=== PATIENT | male | born 1935 | race Caucasian/White ===

== ENCOUNTER 2016-11-05 11:34 | Emergency (ER) | payer MEDICARE ==
[~2016-11-05] VITALS: Ht 165.1 cm; Wt 70.0 kg
[~2016-11-05 11:34] MED LIST: ASPI81 PO; ENAL20TA81 PO; GABA100C4 PO; GLIM1TAB PO; HYDR-3129 PO; NIFE60TA5 PO
[2016-11-05 11:50] VITALS: BP 184/89; PULSE 75; RESP 16; TEMP 98.4; O2SAT 99
--- NOTE | 2016-11-05 13:34 | PD ---
HPI Chief Complaint: Fall Time Seen by Provider: 13:23 Travel History International Travel<30 days: No Contact w/Intl Traveler<30days: No History of Present Illness HPI 82-year-old right-hand dominant male presents to the ED via EMS for evaluation of 2 week history of right shoulder pain. The patient states that pain began after he was attempting to place a bottom wrapper leaf inspector a bureau, it fell and pulled his arm with it. He states that he had momentary pain that resolved shortly after. He was able to pitch in a baseball game a few days later. He states that after throwing 4 or 5 pitches he had excruciating pain in the shoulder and was unable to continue. He states that over the last 3 or 4 days the pain has been "above 10" with any attempted range of motion. He states that he initially had some bruising down the arm but that has since resolved. He endorses problems with this shoulder in the past and was treated with cortisone injections. He treated at home with icy hot and ice packs with no improvement of symptoms. PFSH Past Medical History Arthritis: No Asthma: No Autoimmune Disease: No Blood Disorders: No Heart Rhythm Problems: No Cancer: Yes (MELANOMA FACE) Cardiovascular Problems: No High Cholesterol: No Chemotherapy: No Chest Pain: No Congestive Heart Failure: No COPD: No Cerebrovascular Accident: No Diabetes: Yes Diminished Hearing: No Endocrine: No Gastrointestinal Disorders: Yes (hx of pancreatitis due to gallstones) GERD: No Glaucoma: No Genitourinary: No Hepatitis: No Hiatal Hernia: No Hypertension: Yes Immune Disorder: No Musculoskeletal: Yes (ARTHRITIS) Neurologic: No Psychiatric: No Reproductive: No Respiratory: No Migraines: No Myocardial Infarction: No Pancreatitis: Yes Radiation Therapy: No Seizures: No Sleep Apnea: No Thyroid Disease: No Ulcer: No Past Surgical History Abdominal Surgery: Yes (ALTAGRACIA.) AICD: No Arteriovenous Shunt: No Cardiac Surgery: No Cholecystectomy: Yes Ear Surgery: No Endocrine Surgery: No Eye Surgery: Yes (BILAT. CATARACT SX) Genitourinary Surgery: No Gynecologic Surgery: No Insulin Pump: No Joint Replacement: No Neurologic Surgery: No Oral Surgery: Yes (All teeth removed in 2008) Pacemaker: No Thoracic Surgery: No Tonsillectomy: Yes Other Surgery: Yes Social History Alcohol Use: No Tobacco Use: No Substance Use: No Allergies-Medications (Allergen,Severity, Reaction): Coded Allergies: rosuvastatin (Unverified Allergy, Severe, SWELLING, 10/27/16) simvastatin (Unverified Allergy, Severe, swelling, 10/27/16) Reported Meds & Prescriptions Reported Meds & Active Scripts Active Lortab (Hydrocodone-Acetaminophen) 5-325 Mg Tab 1 Tab PO Q6H PRN Reported Integra (Multi-Vit/Iron-B Comp-Vit C) 62.5-62.5-40-3 mg Cap 1 Cap PO DAILY Atorvastatin (Atorvastatin Calcium) 40 Mg Tab 40 Mg PO HS Glimepiride 1 Mg Tab 1 Mg PO BID Take with breakfast or first main meal Benazepril (Benazepril HCl) 20 Mg Tab 20 Mg PO BID Nifedipine ER 24 HR (Nifedipine) 60 Mg Tab 60 Mg PO DAILY Gabapentin 300 Mg Cap 300 Mg PO BID Aspirin Adult Low Strength (Aspirin) 81 Mg Tabdr 81 Mg PO DAILY Review of Systems Except as stated in HPI: all other systems reviewed are Neg Physical Exam Narrative GENERAL: Well-nourished, well-developed white male in no acute distress. SKIN: Focused skin assessment warm/dry. HEAD: Normocephalic. EYES: No scleral icterus. No injection or drainage. NECK: Supple, trachea midline. No JVD or lymphadenopathy. CARDIOVASCULAR: Regular rate and rhythm without murmurs, gallops, or rubs. RESPIRATORY: Breath sounds equal bilaterally. No accessory muscle use. GASTROINTESTINAL: Abdomen soft, non-tender, nondistended. MUSCULOSKELETAL: No cyanosis, or edema. FOCUSED RIGHT UPPER EXTREMITY EXAM: 2+ radial pulse. Tender to palpation of the anterior aspect of the shoulder. Attempted external rotation elicits pain. Patient is resistant to further ROM of the arm. Strong drill foreman strength. Sensation intact to light touch distally. Cap refill less than 2 seconds. BACK: Nontender without obvious deformity. No CVA tenderness. Data Data Last Documented VS Vital Signs Date Time Temp Pulse Resp B/P (MAP) Pulse Ox O2 Delivery O2 Flow Rate FiO2 11/05/16 15:33 11/05/16 13:57 98.5 72 14 94 Room Air Orders Orders Shoulder, Complete (>2vws) (11/05/16 13:34) Acetamin-Hydrocod 325-5 Mg (Brinkley 5-325 (11/05/16 13:45) Splint Or Brace Apply/Monitor (11/05/16 15:02) [facility] Medical Decision Making Medical Screen Exam Complete: Yes Emergency Medical Condition: Yes Differential Diagnosis Humeral fracture versus rotator cuff injury versus biceps strain versus other Narrative Course 82-year-old right-hand dominant male presents to the ED via EMS for evaluation of 2 week history of right shoulder pain. The patient states that pain began after he was attempting to place a bottom wrapper leaf inspector a bureau, it fell and pulled his arm with it. He states that he had momentary pain that resolved shortly after. A few days later he was able to throw 4 or 5 pitches in a baseball game before he had pain in the shoulder and was unable to continue. He states that over the last 3 or 4 days the pain has been "above 10" with attempted range of motion. Vitals reviewed. Physical exam reveals an elderly white male in no acute distress. The right arm is in a makeshift sling. He gestures unconsciously with the right hand as he talks. Right upper extremity exam reveals 2+ radial pulse. Tender to palpation of the anterior aspect of the shoulder. Attempted external rotation elicits pain. Patient is resistant to further ROM of the arm. Strong drill foreman strength. Neurovascularly intact. Patient was administered Lortab by mouth. X-ray reveals no acute bony injury per radiology read. I suspect this is a rotator cuff injury. Patient was provided with a sling, short course of narcotic pain medications. He has already arranged an outpatient appointment with Dr. Hill this week. He is instructed to return to normal, gentle activities as tolerated, follow up as planned. He was cautioned not to drive while taking narcotic pain medications. He indicated understanding of the instructions. He is stable and discharged home. Diagnosis Primary Impression: Injury of right rotator cuff Qualified Codes: S46.001A - Unspecified injury of muscle(s) and tendon(s) of the rotator cuff of right shoulder, initial encounter Referrals: Alexandru Hill MD Patient Instructions: General Instructions, Rotator Cuff Injury (ED) Additional Instructions: Rest, ice, the extremity. Apply ice no longer than 10-15 minutes per hour a few times a day. Pain medications as prescribed. Do not drive while taking narcotic pain medications. Return to normal, gentle activity as tolerated. Follow-up with the orthopedist as planned Return to the ED for any urgent or emergent medical condition. Med/Other Pt SpecificInfo: Prescription(s) given Scripts Hydrocodone-Acetaminophen (Lortab) 5-325 Mg Tab 1 TAB PO Q6H Y for PAIN, #15 TAB 0 Refills Prov: Brendan Arredondo MD 11/05/16 Disposition: 01 DISCHARGE HOME Condition: Stable Argelia Lopez Nov 05, 2016 13:34
[2016-11-05 13:45] VITALS: BP 196/75; PULSE 73; RESP 18; TEMP 98.5; O2SAT 95
[2016-11-05] MEDS ORDERED: ACETAMINOPHEN/HYDROcodone 325 MG/5 MG TAB PO ONE (13:45)
[2016-11-05 13:57] VITALS: BP 196/75; PULSE 72; RESP 14; TEMP 98.5; O2SAT 94
[2016-11-05] MEDS ORDERED: NIFE60TA58 PO (14:40)
[2016-11-05] MEDS ORDERED: ASPI1TAB91 PO (14:40)
[2016-11-05] MEDS ORDERED: GABA300C5 PO (14:40)
[2016-11-05] MEDS ORDERED: GLIM1TAB PO (14:40)
[2016-11-05] MEDS ORDERED: ATOR40TA16 PO (14:40)
[2016-11-05] MEDS ORDERED: BENA20TA PO (14:40)
[2016-11-05] MEDS ORDERED: FE FCAP PO (14:42)
--- NOTE | 2016-11-05 14:44 | RADRPT ---
EXAM DATE/TIME: 11/05/2016 14:17 [facility] COMPARISON: No previous studies available for comparison. INDICATIONS : Right shoulder pain. Lifting drawer and right arm dropped painfully. Previous minor right rotator cuf f tear. MEDICAL HISTORY : None. SURGICAL HISTORY : None. ENCOUNTER: Initial ACUITY: 1 week PAIN SCORE: 7/10 LOCATION: Right shoulder FINDINGS: No definite fractures, or dislocations are identified. No definite lytic or sclerotic lesion is seen . The joint space is well maintained. CONCLUSION: Unremarkable study. Suleiman Ba MD on November 05, 2016 at 14:42 Board Certified Radiologist. This report was verified electronically.
[2016-11-05] MEDS ORDERED: HYDR-3533 PO (15:03)
== END 2016-11-05 15:38 | disposition home or self-care (01) ==
LOC: NEPD 11:34
DX: S46.001A Unspecified injury of muscle(s) and tendon(s) of the rotator cuff of right shoulder, initial encounter (principal); E11.9 Type 2 diabetes mellitus without complications; K85.90 Acute pancreatitis without necrosis or infection, unspecified; I10 Essential (primary) hypertension; M13.80 Other specified arthritis, unspecified site; Z79.82 Long term (current) use of aspirin; Z79.899 Other long term (current) drug therapy; X50.9XXA Other and unspecified overexertion or strenuous movements or postures, initial encounter
CPT/HCPCS: 73030; 99283

== ENCOUNTER 2017-10-13 08:22 | Inpatient (IN) ==
[2017-10-13] MEDS ORDERED: Aspirin 325 MG Tablet ONE (09:08)
[2017-10-13] MEDS ORDERED: Chlorhexidine Gluconate 2% 1 Pack (2 Cloths) TOPICAL SCH ×2 (09:30→09:45)
[2017-10-13] MEDS ORDERED: Aspirin 325 MG Tablet PO SCH (09:30)
[2017-10-13] MEDS ORDERED: Mupirocin 2% Nasal Oint Topical Syringe EACH NARE SCH (09:30)
[2017-10-13] MEDS ORDERED: Metoprolol Tartrate 25 MG Tablet PO SCH (09:45)
[2017-10-13] MEDS ORDERED: Sodium Chlor 0.9% Inj 500 ML IV.SIG SCH (10:00)
--- NOTE | 2017-10-13 10:27 | MH ---
cc: Freddy Fish MD DATE OF ADMISSION: 10/13/2017 INDICATION: Shortness of breath, severe aortic valve stenosis. REFERRING PHYSICIAN: Shiv Reddy MD HISTORY OF PRESENT ILLNESS: This is a very nice 82-year-old male with recent symptoms of progressive dyspnea. He underwent outpatient echocardiogram, which revealed severe aortic valve stenosis. He then subsequently underwent a scheduled cardiac catheterization with my partner, Dr. Shiv Reddy which revealed normal coronary arteries. He was seen in consultation by cardiothoracic surgery and felt to be intermediate surgical risk for traditional aortic valve replacement and now elects to consider transcatheter aortic valve replacement. He is admitted here for the planned procedure. PAST MEDICAL HISTORY: Hypertension, melanoma, diabetes, hyperlipidemia, neuropathy and gastrectomy. PAST SURGICAL HISTORY: Cholecystectomy, eye surgery, spinal surgery, tonsillectomy. ALLERGIES: CRESTOR. SOCIAL HISTORY: Quit smoking in 1987. Denies any alcohol or drug use. REVIEW OF SYSTEMS: A 12-point review of system was performed and is negative unless otherwise as noted in the history of present illness. MEDICATIONS: See medication reconciliation. FAMILY HISTORY: He denies any family history of early coronary disease or sudden cardiac . PHYSICAL EXAMINATION: VITAL SIGNS: Temperature is 97, pulse 70, blood pressure 128/60 mmHg. GENERAL: Alert, oriented x 3 in no acute distress. HEENT: Shows pupils reactive to light and accommodation. Extraocular movements are intact. NECK: No elevation of jugular venous distention. No thyromegaly or lymphadenopathy. No carotid bruits. LUNGS: Clear to auscultation bilaterally. CARDIOVASCULAR: Regular rate and rhythm, 3/6 crescendo/decrescendo murmur at the right upper sternal border. ABDOMEN: Nontender, nondistended with good bowel sounds. No hepatosplenomegaly. EXTREMITIES: Show no clubbing, cyanosis or edema. Good peripheral pulses. NEUROLOGIC: Cranial nerves intact. LABORATORY STUDIES: WBC 9.1, hemoglobin 12.1, platelet count is 217. INR is 1. Sodium 141, potassium 4.2, BUN is 24, creatinine is 1.31. PREOPERATIVE ASSESSMENT AND WORKUP: STS score 3.1%. [place] [employer] Functional Class 3. His BMI is 23. He is 2/4 frail. His electrocardiogram shows sinus bradycardia with first degree borderline first degree AV block. Pulmonary function test shows a moderate restrictive lung disease with an FEV1 of 1.17. Echocardiogram from 07/21/2017 shows jet velocity of 4.62 meters per second, mean gradient 52 mmHg, calculated aortic valve area is 0.83 cm2. Ejection fraction 60-65%, aortic insufficiency mild to moderate, mitral regurgitation mild, tricuspid regurgitation mild. Coronary angiography performed on 09/16/2017 shows mild nonobstructive coronary disease. Computed tomography analysis on 09/16/2017 reveals a short annulus diameter 20.2 and a long annulus diameter of 25.8 mm and an 407 mm2 planned valve for a 26 mm Hubbard S3. His sense of Valsalva is measured 34.4 mm, sinotubular junction 32.2 mm. Left coronary height is 14.1 mm, right coronary artery is 21.3 mm, AP is 0, SAMOAN 0 caudal for angle, right iliac 3.2 mm, left iliac 6.2 mm. ASSESSMENT: 1. Severe aortic valve stenosis. 2. Peripheral arterial disease. PLAN: The risks, benefits and alternatives discussed with the patient. The patient understood and consented to the procedure. Will approach from a left common femoral artery approach. The right common iliac artery has stenosis present, which we will have to monitor closely. Freddy Fish MD JAYSHREE/DL , 10:02 AM , 10:13 AM
[2017-10-13] MEDS ORDERED: Heparin 10,000 UNITS/10 ML Vial (for IV use) ONE (10:30)
[2017-10-13] MEDS ORDERED: Protamine Sulfate Inj 50 MG/5 ML Vial ONE (10:31)
[2017-10-13] MEDS: ceFAZolin 2 GM Premix Inj 2 GM/50 ML PIGGYBACK IV.SIG SCH (11:08)
[2017-10-13] MEDS ORDERED: Iohexol Inj 350 MG/ML 100 ML Bottle (for RAD Diag) IVCONTRAST ONE (11:30)
[2017-10-13] MEDS ORDERED: Glycopyrrolate Inj 1 MG/5 ML Syringe IV.PUSH ONE (12:00)
[2017-10-13] MEDS ORDERED: Lidocaine PF 1% Inj 5 ML Syringe INFILTRATN ONE (12:00)
[2017-10-13] MEDS ORDERED: Sod Chloride 0.9% Inj 1,000 ML IV.SIG ONE (12:00)
[2017-10-13] MEDS ORDERED: Phenylephrine/NS 1000 MCG/10ML Syringe IV.PUSH ONE (12:00)
[2017-10-13] MEDS ORDERED: Metoprolol Inj 5 MG/5 ML Vial IV.PUSH ONE (12:00)
[2017-10-13] MEDS ORDERED: Iohexol 350 MG/ML 50 ML Vial (for Rad Diag) PO ONE (12:24)
--- NOTE | 2017-10-13 12:34 | P.OP ---
Date of procedure: 10/13/17 Anesthesia: GETA Surgeon: Cecilio Jennings MD Operation and Findings: PREOPERATIVE DIAGNOSIS: 1. Severe Symptomatic Aortic stenosis. 2. CHF 3. Moderate aortic Insufficiency POSTOPERATIVE DIAGNOSIS: Same OPERATION PERFORMED: 1. Transcatheter Aortic Valve Replacement (TAVR) with an Hubbard 26 mm Jean Pierre 3 Tissue Valve. 2. Balloon Aortic Valvuloplasty 3. Aortogram. 4. Percutaneous right femoral Vein Access and Bilateral Common Femoral Artery Access 5. Perclose closure of Left common Femoral artery. 6. Vascade closure of Right common Femoral artery and vein. 7. Fluoroscopy SURGEON: Cecilio Jennings MD CO-SURGEON: Freddy Fish MD RICE FARMER SURGEON: None IT ASSISTANT: JESUS Camarena MD ANESTHESIA: GETA PROCEDURE: The risks, benefits, complications, treatment options, and expected outcomes were discussed with the patient. The possibilities of reaction to medication, pulmonary aspiration, perforation of viscus, bleeding, recurrent infection, the need for additional procedures, failure to diagnose a condition, and creating a complication requiring transfusion or operation were discussed with the patient. The patient concurred with the proposed plan, giving informed consent. The site of surgery properly noted/marked. The patient was taken to the hybrid operating room and the procedure verified as Transcatheter Aortic Valve Replacement. A Time Out was held and the above information confirmed. Standard monitoring lines and Worley catheter were placed. General anesthesia was induced. The patient was prepped and draped in a sterile fashion. Initially, the right femoral arterial and venous access was acquired using a Seldinger percutaneous technique. The details of this procedure were dictated under separate note by cardiology. Once a pigtail was positioned in the aortic annulus and a temporary transvenous pacemaker wire was placed in the right ventricular apex and tested, the left femoral artery was accessed using a needle followed by a guidewire under fluoroscopic guidance. The patient was heparinized and 2 Perclose devices deployed for later closure. Serial dilators were used to dilate the left femoral artery to 14 [place] caliber. The Hubbard sheath was then inserted into the external iliac artery up to the distal abdominal aorta. Arch aortography was performed to define the implant view. A balloon aortic valvuloplasty was then performed using a 23 4 balloon with rapid pacing. A 26 Hubbard Jean Pierre 3 transcatheter aortic valve was then positioned in the annulus and deployed with the patient being rapidly paced. Following deployment , the valve apparatus was withdrawn and arch aortography and EMILY were performed to assess the valve. The valve had no significant perivalvular leaks. Gradients were then measured and the sheath was removed while securing the Perclose sutures for hemostasis. Protamine was administered. The right arterial and Venous access sites were closed using the Vascade device. Sterile dressings were placed. At the end of the operation, all sponge, instruments, and needle counts were correct. The patient was transferred to the CVICU in stable condition. Findings: No PVL Implants: 26 Jean Pierre 3 tissue valve Complications: None Disposition: to CVICU in stable condition
[2017-10-13] MEDS ORDERED: Sugammadex Inj 200 MG/2 ML Vial IV.PUSH ONE (12:41)
[2017-10-13] MEDS ORDERED: Atropine Inj 1 MG/ML Vial IV.PUSH PRN (12:48)
[2017-10-13] MEDS ORDERED: Benzocaine/Menthol 15 MG/3.6 MG SF Lozenge BUCCAL PRN (12:48)
[2017-10-13] MEDS ORDERED: fentaNYL Citrate Inj 100 MCG/2 ML Ampul ONE (13:00)
[2017-10-13] MEDS: Sod Chloride 0.9% Inj 1,000 ML IV.CONT SCH ×2 (13:15→18:08)
--- NOTE | 2017-10-13 13:38 | MA ---
cc: Freddy Fish MD DATE: 10/13/2017 PROCEDURE: Transcatheter aortic valve replacement. RODDING MACHINE TENDER: Freddy Fish MD, [facility] PRIMARY SURGEON: Cecilio Jennings MD PROCEDURES PERFORMED: 1. Fluoroscopy with interpretation. 2. Left heart catheterization. 3. Ascending aortography. 4. Temporary transvenous pacemaker. 5. Transesophageal echocardiography. 6. Aortic valvuloplasty. 7. Transcatheter aortic valve replacement. METHOD: Risks, benefits and alternatives discussed with the patient. The patient understood and consented to the procedure. The patient was brought to the catheterization lab, placed on the catheterization table. The right and left groins were prepped and draped in usual sterile fashion. The right groin was anesthetized with 2% lidocaine. A 5-Citizen Of [place] 11 cm sheath was placed in both the artery and the vein. Access was obtained on the left common femoral artery and an 8-Citizen [place] sheath placed without difficulty. Two Perclose devices were successfully deployed in a preclose manner. TEMPORARY TRANSVENOUS PACEMAKER PLACEMENT: A 5-Citizen [place] balloon temporary transvenous pacemaker was advanced to the right jugular sheath to the level of the apex and pacing confirmed with good capture. TRANSESOPHAGEAL ECHOCARDIOGRAM: Please see separate detailed report. LEFT HEART CATHETERIZATION: A J-wire was advanced to the ascending aorta. A 6-Citizen [place] AL1 catheter was advanced to the ascending aorta. Amplatz straight tip wire was then advanced across the aortic valve with some difficulty. The AL1 catheter advanced into the left ventricle. A 0.035 inch J-wire was then advanced to the apex. AL1 catheter removed. Pigtail catheter was advanced to the apex and the J-wire removed. A 0.035 inch Confida wire was then advanced to the left ventricular apex and the pigtail catheter removed. ASCENDING AORTOGRAPHY: Ascending aortography was performed left anterior oblique view. All 3 cusps were visualized and leaflets were in parallel. AORTIC VALVULOPLASTY: A 23 x 40 mm Hubbard valvuloplasty balloon was advanced through the right common femoral sheath and across the aortic valve. Under rapid pacing, balloon was deployed. Repeat transesophageal echocardiogram did show moderate to severe aortic valve insufficiency. Balloon was removed. TRANSCATHETER AORTIC VALVE REPLACEMENT: A 26 mm Hubbard MIRTA S3 bioprosthetic valve was then advanced into the descending aorta balloon. Pulled back into the stent. The valve was then advanced up and over the arch and across the aortic valve. Appropriate positioning was confirmed. Under rapid pacing, the valve was then carefully deployed. Repeat ascending aortography and transesophageal echocardiography revealed good valve placement without regurgitation. Both coronary arteries widely patent. INTRAOPERATIVE POST TAVR IENSSA 1.23 CM2 MEAN GRADIENT 7 MMHG VMAX 1.9 M/S NO AI CONCLUSIONS: 1. Successful transcatheter aortic valve replacement with MIRTA with Hubbard S3, 26 mm bioprosthetic valve. 2. Successful aortic valvuloplasty. PLAN: The patient will be initiated on aspirin and Plavix. Monitor closely for any post-procedural complications. We will follow up with a limited 2-D echocardiogram. Plan for extubation. Consult electrophysiology for evaluation. MD JAYSHREE Negron/CODY , 12:57 PM , 01:07 PM [id number]
[2017-10-13 14:08] LABS: Baso # (Auto) 0.1 th/mm3 (0.0-0.2); Baso % (Auto) 0.6 % (0.0-2.0); Eos # (Auto) 0.3 th/mm3 (0.0-0.4); Eos % (Auto) 3.4 % (0.0-4.0); Hematocrit 31.9 % (39.0-51.0); Hemoglobin 10.9 gm/dL (13.0-17.0); Lymph # (Auto) 1.8 th/mm3 (1.0-4.8); Lymph % (Auto) 17.9 % (9.0-44.0); Mean Corpuscular HGB Conc 34.1 % (32.0-36.0); Mean Corpuscular Hemoglobin 29.5 pg (27.0-34.0); Mean Corpuscular Volume 86.3 fL (80.0-100.0); Mean Platelet Volume 7.4 fL (7.0-11.0); Mono # (Auto) 0.6 th/mm3 (0.0-0.9); Mono % (Auto) 5.6 % (0.0-8.0); Neut # (Auto) 7.3 th/mm3 (1.8-7.7); Neut % (Auto) 72.5 % (16.0-70.0); Platelet Count 167 th/mm3 (150-450); Red Cell Distribution Width 13.5 % (11.6-17.2); White Blood Count 10.1 th/mm3 (4.0-11.0)
--- NOTE | 2017-10-13 14:16 | P.CONCC ---
History of Present Illness Service: Critical care Consult date: 10/13/17 Requesting Physician: Freddy Fish Reason for Consult: Progressive dyspnea, Severe Primary Care Provider: UNKNOWN Family Provider: Lissa Buck MD Chief Complaint: Severe History of Present Illness: Patient is a 82-year-old male with history of hypertension, diabetes, hyperlipidemia, neuropathy and history of melanoma who was recently diagnosed severe aortic stenosis moderate aortic insufficiency, on echocardiogram as part of evaluation for progressive dyspnea. Cardiac catheterization revealed normal coronary arteries. Patient underwent balloon valvuloplasty and TAVR today with Hubbard 26 mm Jean Pierre 3 Tissue Valve, and temporary pacemaker placement today. Postprocedure he was loaded with Plavix initiated on scheduled Plavix and aspirin, was extubated and transferred to CVICU. Postprocedure EMILY showed no significant perivalvular leaks. On my evaluation patient is slightly somnolent but denies any pain. Breathing comfortably. Bilateral groin sites without hematoma. Peripheral pulses are palpable. Patient is having ectopies chest x-ray pending for pacemaker placement Review of Systems All other systems reviewed negative except as stated in HPI PMFSH - History History Provided By: Patient - Medical History Medical History: Medical History (Last Updated 09/28/17 @ 16:08 by Genesis Santo MD) Aortic valve stenosis CHF (congestive heart failure) History of gastrectomy Hyperlipidemia Hypertension Melanoma of face Neuropathy Shortness of breath Type 2 diabetes mellitus - Surgical History Surgical History: Surgical History (Last Updated 09/28/17 @ 16:08 by Genseis Santo MD) History of ERCP Hx of cataract surgery Hx of cholecystectomy Hx of tonsillectomy - Family History Family History: Family History (Last Updated 09/28/17 @ 16:14 by Genesis Santo MD) Other Family history of hypertension - Tobacco History Second Hand Smoke Exposure: No Smoking Status: Former smoker - Alcohol History How Often Do You Have a Drink Containing Alcohol: Never - Substance Use History Substance History: No History of Abuse - Travel History History of Recent Travel: No Medications and Allergies Active Medications: Active Medications Aspirin (Aspirin Chew) 81 mg PO DAILY [facility] Atropine Sulfate (Atropine Inj) 0.5 mg IV.PUSH UNSCH PRN PRN Reason: VAGAL REPONSE Stop: 10/14/17 12:47 Benzocaine/Menthol (Cepacol Max Strength) 1 lozenge BUCCAL Q3H PRN PRN Reason: SORE THROAT Stop: 10/14/17 12:47 Chlorhexidine Gluconate (Chlorhexidine 2% Cloth) 3 pack [employer] [facility] Stop: 10/16/17 09:23 Last Admin: 10/13/17 09:31 Dose: 3 pack Chlorhexidine Gluconate (Chlorhexidine 2% Cloth) 3 pack [employer] [facility] Stop: 10/16/17 09:33 Clonidine HCl (Catapres) 0.2 mg PO Q6H PRN PRN Reason: SBP > 160 mmHg Clopidogrel Bisulfate (Plavix) 75 mg PO DAILY [facility] Cefazolin Sodium/Dextrose (Ancef 2 Gm Premix Inj) 2 gm in 50 mls @ 100 mls/hr IV.SIG ONCE [facility] Stop: 10/16/17 09:23 Last Infusion: 10/13/17 11:28 Dose: Infused Sodium Chloride (Ns Inj) 1,000 mls @ 125 mls/hr IV.CONT .Q8H [facility] Last Admin: 10/13/17 13:15 Dose: Not Given Lactated Ringer's (Lr 1000 Ml Inj) 1,000 mls @ 30 mls/hr IV.SIG .Q24H [facility] Stop: 10/16/17 09:33 Last Admin: 10/13/17 13:15 Dose: Not Given Sodium Chloride (Ns Inj) 500 mls @ 30 mls/hr IV.SIG .Q10H [facility] Stop: 10/16/17 09:33 Metoprolol Tartrate (Lopressor) 25 mg PO [employer] [facility] Stop: 10/16/17 09:33 Morphine Sulfate (Morphine Inj) 2 mg IV.PUSH Q30M PRN PRN Reason: BREAKTHROUGH PAIN Mupirocin (Bactroban 2% Nasal Oint) 1 applicatio EACH NARE [employer] [facility] Stop: 10/16/17 09:23 Ondansetron HCl (Zofran Inj) 4 mg IV.PUSH ONCE PRN PRN Reason: NAUSEA OR VOMITING Stop: 10/14/17 23:00 Oxycodone/Acetaminophen (Percocet 5/325 Mg) 1 tab PO Q6H PRN PRN Reason: PAIN SCALE 3 TO 5 Povidone Iodine (Betadine 5% Antisepsis Kit) 1 applicatio [employer] [facility] Stop: 10/16/17 09:23 Last Admin: 08/01/18 09:31 Dose: 1 applicatio Povidone Iodine (Betadine 5% Antisepsis Kit) 1 applicatio EACH [employer] [facility] Stop: 10/16/17 09:33 Allergies Allergy/AdvReac Type Severity Reaction Status Date / Time rosuvastatin Allergy Severe SWELLING Verified 09/28/17 11:56 simvastatin Allergy Severe swelling Verified 09/28/17 11:56 Home Medications Medication Instructions Recorded Confirmed Type aspirin [Aspirin Low Dose] 81 mg PO DAILY 09/28/17 10/13/17 History atorvastatin 40 mg PO DAILY 09/28/17 10/13/17 History benazepril 20 mg PO BID 09/28/17 10/13/17 History gabapentin 300 mg PO TID 09/28/17 10/13/17 History glimepiride 1 mg PO BID 09/28/17 10/13/17 History nifedipine 30 mg PO DAILY 09/28/17 10/13/17 History Physical Exam Vital signs: Vital Signs 10/13/17 09:00 10/13/17 13:24 Temperature 97.8 F Pulse Rate 70 Respiratory Rate 16 Blood Pressure 128/60 Pulse Oximetry 97 Intake & Output 10/12/17 10/13/17 10/13/17 18:59 06:59 18:59 Intake Total 950 / 950 Output Total 130 / 130 Balance 820 / 820 Weight 66.1 kg Intake: IV 50 / 50 Ancef 2 GM Premix Inj 2 gm In 50 / 50 50 ml @ 100 mls/hr IV.SIG ONCE [facility] Rx#:[id number] Anesthesia Amount 900 / 900 Output: Estimated Blood Loss 30 / 30 Urine Amount (Catheter) 100 / 100 Indwelling Temp Sensing 100 / 100 Catheter Other: Weight On Admission 66.1 kg Narrative: GENERAL: 82 yo male lying in in CVICU bed, no acute distress HEENT: Pupils reactive to light. Extraocular movements are intact. NECK: Right-sided cordis in place, with temporary pacer LUNGS: Clear to auscultation bilaterally. CARDIOVASCULAR: S1-S2 normal. No murmurs heard. Intermittent ectopy ABDOMEN: Nontender, no hepatomegaly EXTREMITIES: Bilateral groin sites dressing intact, no groin hematoma. Good peripheral pulses. NEUROLOGIC: Awake alert oriented. Motor and sensory grossly intact. - Urinary Catheter Management Indwelling Temp Sensing Catheter Cath placed during this visit: yes Reason for continuing: Hourly intake/output Insertion date: 10/13/17 Insertion time: 11:10 Septic Shock Reassessment Septic shock perfusion: reassessment completed Assessment and Plan - Assessment and Plan Plan: ASSESSMENT: Severe aortic stenosis/moderate aortic insufficiency status post TAVR History of congestive heart failure Severe diabetes See of melanoma PAD PLAN: NEURO: -Minimize any sedation -Percocet, Morphine as needed for pain RESP: -DuoNeb every 6 hours as needed -Oxygen by nasal cannula to keep saturation above 90% CV: -s/p balloon valvuloplasty and TAVR, no significant leak on postop EMILY -CXR to confirm temporary pacemaker placement -Loaded with Plavix, continue Plavix and aspirin -Cardiology Dr. Fish, CTS Dr. Jennings -Cleviprex for BP control GI: -Diet when cleared by cardiology : -Monitor renal function closely. Worley catheter. ID: -Perioperative antibiotics per Dr. Fish HEME: -Monitor CBC, coags ENDO: -Electrolyte replacement per protocol -Sliding scale insulin if needed PROPH: -Avoid chemical DVT prophylaxis until cleared by Dr. Fish. LINES: -Utilize peripheral IVs, RIJ cordis with Pacer wire in place Level 3 new consult Code Status: Full
--- NOTE | 2017-10-13 14:47 | XR ---
EXAM DATE: 10/13/2017 2:41 PM EDT AGE/SEX: 82 years / Male INDICATIONS: Cardiac disease CLINICAL DATA: This is the patient's initial encounter. Patient reports that signs and symptoms have been present for 2 days and indicates a pain score of Nonresponsive. MEDICAL/SURGICAL HISTORY: Hypertension. aortic valve stenosis, neuropathy None. COMPARISON: [facility], CHEST PA & LAT, 05/22/2014. . FINDINGS: The right IJ central venous catheters in good position. There is no pneumothorax. The heart is normal in size. The lungs are clear. CONCLUSION: Right IJ central venous catheter in good position. No pneumothorax. Electronically signed by: Brendan Chi MD 10/13/2017 2:46 PM EDT
[2017-10-13] MEDS ORDERED: Clevidipine Inj 25 MG/50 ML VIAL ONE (14:54)
[2017-10-13 14:57] LABS: Calcium 8.2 mg/dL (8.5-10.1); Carbon Dioxide 27.6 meq/L (21.0-32.0); Magnesium 2.1 mg/dL (1.5-2.5); Potassium 4.5 meq/L (3.5-5.1)
[2017-10-13] MEDS: Clevidipine Inj 25 MG/50 ML VIAL IV.CONT PRN ×3 (15:00→18:07)
--- NOTE | 2017-10-13 16:59 | ECG ---
Date Performed: 10/13/2017 Time Performed: 08:52:24 PTAGE: 82 years EKG: Sinus rhythm . Normal ECG Since the PREVIOUS TRACING , no significant change noted PREVIOUS TRACIN09/28/2017 12.00 DOCTOR: Rachna Saunders Interpretating Date/Time 10/13/2017 16:58:49
[2017-10-13] MEDS: Lisinopril 20 MG Tablet PO SCH (21:45)
[2017-10-14] MEDS: Clevidipine Inj 25 MG/50 ML VIAL IV.CONT PRN ×2 (01:33→01:37)
[2017-10-14 04:42] LABS: Hematocrit 32.1 % (39.0-51.0); Hemoglobin 11.1 gm/dL (13.0-17.0); Mean Corpuscular HGB Conc 34.5 % (32.0-36.0); Mean Corpuscular Hemoglobin 29.4 pg (27.0-34.0); Mean Corpuscular Volume 85.4 fL (80.0-100.0); Mean Platelet Volume 7.9 fL (7.0-11.0); Platelet Count 188 th/mm3 (150-450); Red Blood Count 3.76 mil/mm3 (4.50-5.90); Red Cell Distribution Width 13.4 % (11.6-17.2); White Blood Count 12.6 th/mm3 (4.0-11.0)
[2017-10-14] MEDS: Sod Chloride 0.9% Inj 1,000 ML IV.CONT SCH ×3 (04:55→18:05)
[2017-10-14 05:21] LABS: Calcium 8.4 mg/dL (8.5-10.1); Carbon Dioxide 25.7 meq/L (21.0-32.0); Potassium 4.3 meq/L (3.5-5.1)
--- NOTE | 2017-10-14 08:23 | P.PNCA ---
Subjective Interval history: Patient seen up in the chair. Patient reports she is going for EP study this morning. He denies any chest pain, shortness breath, palpitations, lightheadedness, dizziness, passing out. No issues with groin access sites. Physical Exam Vital signs: Vital Signs 10/13/17 09:00 10/13/17 12:45 10/13/17 13:24 Temperature 97.8 F 96.3 F L Pulse Rate 70 70 Respiratory Rate 16 12 Blood Pressure 128/60 154/54 H Pulse Oximetry 98 97 10/13/17 15:00 10/13/17 16:00 10/13/17 19:00 Temperature 97.6 F 97.3 F L Pulse Rate 62 70 77 Respiratory Rate 16 16 Blood Pressure 172/60 H 158/57 H Pulse Oximetry 96 96 10/13/17 21:54 10/13/17 23:00 10/14/17 00:00 Temperature 98.1 F Pulse Rate 68 Respiratory Rate 16 16 Blood Pressure 142/50 H Pulse Oximetry 97 95 10/14/17 03:00 10/14/17 04:00 10/14/17 07:00 Temperature 98.3 F 97.6 F Pulse Rate 70 64 Respiratory Rate 16 16 16 Blood Pressure 140/46 L 113/56 L Pulse Oximetry 96 Intake & Output 10/13/17 10/14/17 10/14/17 18:59 06:59 18:59 Intake Total 1480 / 1480 730 / 730 Output Total 1155 / 1155 540 / 540 Balance 325 / 325 190 / 190 Weight 145 lb 11.609 oz Intake: IV 100 / 100 50 / 50 Cleviprex Inj 25 mg In 50 ml @ 50 / 50 50 / 50 1 MG/HR 2 mls/hr IV.CONT TITRATE PRN Rx#:[id number] Ancef 2 GM Premix Inj 2 gm In 50 / 50 50 ml @ 100 mls/hr IV.SIG ONCE [facility] Rx#:[id number] Oral 480 / 480 680 / 680 Anesthesia Amount 900 / 900 Output: Urine 540 / 540 Stool 0 / 0 Estimated Blood Loss 30 / 30 Urine Amount (Catheter) 1125 / 1125 Indwelling Temp Sensing 1125 / 1125 Catheter Other: # Bowel Movements 0 Weight On Admission 145 lb 11.609 oz Narrative: GENERAL: Well-developed well-nourished. In no acute distress. NECK: No carotid bruits. No JVD. CARDIOVASCULAR: Regular rate and rhythm. [place] valve sounds appreciated. Bilateral groin access sites with no swelling, ecchymosis, or tenderness. DP pulses 2+ bilaterally. RESPIRATORY: No accessory muscle use. Clear to auscultation. Breath sounds equal bilaterally. MUSCULOSKELETAL: No clubbing or cyanosis. No edema. NEUROLOGICAL: Awake and alert. Normal speech. - Urinary Catheter Management Indwelling Temp Sensing Catheter Cath placed during this visit: yes Reason for continuing: Hourly intake/output Insertion date: 10/13/17 Insertion time: 11:10 Assessment and Plan - Plan 82-year-old male with history of severe aortic stenosis now status post TAVR 10/13 Doing well post TAVR Going for EP study today Limited echo today Aspirin, Plavix Discussed Condition With: Patient, Dr. Fish
--- NOTE | 2017-10-14 09:33 | MB ---
cc: Phyllis Jaramillo MD DATE: 10/14/2017 REASON FOR CONSULTATION: Status post TAVR electrocardiographic changes. HISTORY OF PRESENT ILLNESS: Mr. Pagan is an 82-year-old gentleman with a history of high blood pressure, diabetes mellitus, hyperlipidemia, neuropathy, previous melanoma, aortic valve stenosis who underwent a transaortic valve replacement yesterday. Post-procedure, the patient developed a new left bundle branch block. I was consulted for evaluation and management. The chart was reviewed. The patient was evaluated. ALLERGIES: ROSUVASTATIN AND SIMVASTATIN. SOCIAL HISTORY: The gentleman denies smoking and drinking. FAMILY HISTORY: Noncontributory to his current medical condition. MEDICATIONS: Currently, he is on Plavix and aspirin. He is on clonidine 0.2 mg every 6 hours p.r.n. He is on lisinopril 20 mg twice a day. He is on Lopressor p.r.n. He is on metformin. He is on nifedipine XL 30 mg a day, Zofran p.r.n. and Percocet p.r.n. REVIEW OF SYSTEMS: Currently, the patient referred no chest pain, no chest discomfort. No vomiting, no fever. PHYSICAL EXAMINATION: GENERAL: Alert, fully oriented. VITAL SIGNS: Blood pressure 113/56, pulse 64, respiratory rate 18. LUNGS: Ventilated. CARDIOVASCULAR: S1, S2. No gallop. No murmur. ABDOMEN: Soft. No mass. EXTREMITIES: No edema. ELECTROCARDIOGRAM: At baseline, shows sinus rhythm, some diffuse ST changes. Post-procedure, the patient has a left bundle branch block. LABORATORY DATA: Hemoglobin is 11.1, white blood cell 12.6. Potassium 4.3, creatinine 1.39. ASSESSMENT AND RECOMMENDATIONS: Mr. Pagan had a TAVR. He is doing well. There is no murmur. The gentleman has a temporary pacemaker and a right jugular central line. He has a new left bundle branch block. Infra-His disease is suspected. Electrophysiology study will be performed. If Infra-His disease is found, a pacemaker will be implanted. The risks, the nature and the benefits of the procedure are clearly stated to him. The risks include pneumothorax, cardiac perforation, stroke and even . The patient understands and agreed to proceed. The procedure will be performed today. MD SHAN Elizondo , 09:09 AM , 09:26 AM
--- NOTE | 2017-10-14 10:02 | P.PNCC ---
Subjective Subjective Remarks/Hospital Course: Patient is a 82-year-old male with history of hypertension, diabetes, hyperlipidemia, neuropathy and history of melanoma who was recently diagnosed severe aortic stenosis moderate aortic insufficiency, on echocardiogram as part of evaluation for progressive dyspnea. Cardiac catheterization revealed normal coronary arteries. Patient underwent balloon valvuloplasty and TAVR today with Hubbard 26 mm Jean Pierre 3 Tissue Valve, and temporary pacemaker placement today. Postprocedure he was loaded with Plavix initiated on scheduled Plavix and aspirin, was extubated and transferred to CVICU. Postprocedure EMILY showed no significant perivalvular leaks. On my evaluation patient is slightly somnolent but denies any pain. Breathing comfortably. Bilateral groin sites without hematoma. Peripheral pulses are palpable. Patient is having ectopies chest x-ray pending for pacemaker placement SUBJECTIVE: 10/14: Currently sitting in chair. Afebrile. Episode and new onset of first degree heart block. For EPS study and limited echocardiogram today. On lisinopril 20 twice daily for blood pressure control. Objective Vital Signs / I&O: Vital Signs 10/13/17 12:45 10/13/17 13:24 10/13/17 15:00 Temperature 96.3 F L 97.6 F Pulse Rate 70 62 Respiratory Rate 12 16 Blood Pressure 154/54 H 172/60 H Pulse Oximetry 98 97 96 10/13/17 16:00 10/13/17 19:00 10/13/17 21:54 Temperature 97.3 F L Pulse Rate 70 77 Respiratory Rate 16 Blood Pressure 158/57 H Pulse Oximetry 96 97 10/13/17 23:00 10/14/17 00:00 10/14/17 03:00 Temperature 98.1 F 98.3 F Pulse Rate 68 70 Respiratory Rate 16 16 16 Blood Pressure 142/50 H 140/46 L Pulse Oximetry 95 96 10/14/17 04:00 10/14/17 07:00 Temperature 97.6 F Pulse Rate 64 Respiratory Rate 16 16 Blood Pressure 113/56 L Pulse Oximetry Intake & Output 10/13/17 10/14/17 10/14/17 18:59 06:59 18:59 Intake Total 1480 / 1480 730 / 730 Output Total 1155 / 1155 540 / 540 Balance 325 / 325 190 / 190 Weight 66.1 kg Intake: IV 100 / 100 50 / 50 Cleviprex Inj 25 mg In 50 ml @ 50 / 50 50 / 50 1 MG/HR 2 mls/hr IV.CONT TITRATE PRN Rx#:[id number] Ancef 2 GM Premix Inj 2 gm In 50 / 50 50 ml @ 100 mls/hr IV.SIG ONCE [facility] Rx#:[id number] Oral 480 / 480 680 / 680 Anesthesia Amount 900 / 900 Output: Urine 540 / 540 Stool 0 / 0 Estimated Blood Loss 30 / 30 Urine Amount (Catheter) 1125 / 1125 Indwelling Temp Sensing 1125 / 1125 Catheter Other: # Bowel Movements 0 Weight On Admission 66.1 kg Result Diagrams: 10/14/17 04:20 10/14/17 04:00 Imaging: ITS Impressions Chest X-Ray 10/13/17 00:00 CONCLUSION: Right IJ central venous catheter in good position. No pneumothorax. Objective Remarks: GENERAL: 82-year-old male resting in bed in no acute distress SKIN: Warm and dry. No rash HEAD: Atraumatic. Normocephalic. EYES: Pupils equal and round. No scleral icterus. No injection or drainage. ENT: No nasal bleeding or discharge. Mucous membranes pink and moist. NECK: Trachea midline. No JVD. Right IJ with temporary catheter clean dry and intact CARDIOVASCULAR: Regular rate and rhythm. Intermittently paced. RESPIRATORY: No accessory muscle use. Clear to auscultation. Breath sounds equal bilaterally. GASTROINTESTINAL: Abdomen soft, non-tender, nondistended. Hepatic and splenic margins not palpable. MUSCULOSKELETAL: Extremities without clubbing, cyanosis, or edema. No obvious deformities. NEUROLOGICAL: Awake and alert. No obvious cranial nerve deficits. Motor grossly within normal limits. Five out of 5 muscle strength in the arms and legs. Normal speech. PSYCHIATRIC: Appropriate mood and affect; insight and judgment normal. Assessment and Plan - Assessment and Plan Plan: NEURO/PSYCH: History of lumbar stenosis with neurogenic claudication Currently on oxycodone/acetaminophen 5/325 1 tablet every 6 hours and morphine sulfate milligrams every 30 minutes as needed as needed pain Holding gabapentin 300 mg 3 times daily/home medication. Resume when clinically indicated Acetaminophen 650 mg p.o. every 6 hours as needed fever RESP: -DuoNeb every 6 hours as needed -Oxygen by nasal cannula to keep saturation above 90% -Incentive spirometry while awake -Chest x-ray revealed adequate positioning of right IJ cordis/temporary pacemaker CV: Successful transcatheter aortic valve replacement with JEAN PIERRE with Hubbard S3, 26 mm bioprosthetic valve secondary to severe aortic stenosis/moderate aortic insufficiency Successful aortic valvuloplasty Essential hypertension Hyperlipidemia History of PAD History of diastolic heart failure -no significant leak on postop EMILY -CXR to confirm temporary pacemaker placement -Loaded with clopidogrel 600 mg 1. Continue clopidogrel 75 mg daily aspirin 81 mg daily -Cardiology Dr. Fish, CTS Dr. Jennings - Clevidipine for BP control -Resumed lisinopril 20 mg by mouth twice daily. On benazepril 20 mg twice daily at home. -Holding nifedipine extended release 30 mg daily. For EPS studies/possible pacemaker today. Limited 2D echocardiogram pending Holding atorvastatin 40 mg by mouth daily. Noted allergies to rosuvastatin and simvastatin. GI: -Diet when cleared by cardiology No indication for GI prophylaxis. Docusate sodium/senna 1 tablet twice daily for bowel Renal/: Acute kidney injury in the setting of chronic kidney disease stage III a -Monitor renal function closely. Removal of Worley catheter. Monitor urine output Accurate I's and O's Follow-up on BMP in a.m. 10/15. ID: -Perioperative antibiotics with cefazolin per Dr. Fish -Monitor for signs and symptomatology infection HEME: Leukocytosis Normocytic anemia History of melanoma -Monitor CBC, coags FEN/ENDO: Diabetes mellitus type 2 -Electrolyte replacement per protocol -Sliding scale insulin with aspart insulin/medium regimen with Accu-Cheks before meals at bedtime. Holding glimepiride 1 mg twice daily PROPH: -Avoid chemical DVT prophylaxis until cleared by Dr. Fish. LINES: -Utilize peripheral IVs, RIJ cordis with Pacer wire in place day #2 placed 10/13 Level 2 follow-up
--- NOTE | 2017-10-14 10:03 | P.PNCV ---
- Note Subjective/Hospital Course: 82-year-old male with recent symptoms of progressive dyspnea. He underwent outpatient echocardiogram, which revealed severe aortic valve stenosis. He then subsequently underwent a scheduled cardiac catheterization with my partner , Dr. Shiv Reddy which revealed normal coronary arteries. He was seen in consultation by cardiothoracic surgery and felt to be intermediate surgical risk for traditional aortic valve replacement and now elects to consider transcatheter aortic valve replacement. He is admitted here for the planned procedure. PAST MEDICAL HISTORY: Hypertension, melanoma, diabetes, hyperlipidemia, neuropathy and gastrectomy. surgery: 10/13 1. Transcatheter Aortic Valve Replacement (TAVR) with an Hubbard 26 mm Jean Pierre 3 Tissue Valve. 2. Balloon Aortic Valvuloplasty 3. Aortogram. 4. Percutaneous right femoral Vein Access and Bilateral Common Femoral Artery Access 5. Perclose closure of Left common Femoral artery. 6. Vascade closure of Right common Femoral artery and vein. 10/14 had some bigenmy last pm , occasional pacing , for EP study today by Dr Jaramillo on room air, ambulated in [facility] Objective: Vital Signs - 24 hr 10/13/17 12:45 10/13/17 13:24 10/13/17 15:00 Temperature 96.3 F L 97.6 F Pulse Rate 70 62 Respiratory Rate 12 16 Blood Pressure 154/54 H 172/60 H Pulse Oximetry 98 97 96 10/13/17 16:00 10/13/17 19:00 10/13/17 21:54 Temperature 97.3 F L Pulse Rate 70 77 Respiratory Rate 16 Blood Pressure 158/57 H Pulse Oximetry 96 97 10/13/17 23:00 10/14/17 00:00 10/14/17 03:00 Temperature 98.1 F 98.3 F Pulse Rate 68 70 Respiratory Rate 16 16 16 Blood Pressure 142/50 H 140/46 L Pulse Oximetry 95 96 10/14/17 04:00 10/14/17 07:00 Temperature 97.6 F Pulse Rate 64 Respiratory Rate 16 16 Blood Pressure 113/56 L Pulse Oximetry GENERAL: A&O x 3 SKIN: Warm and dry. right IJ cordis with temp venous pacer in place / external pacer set at 50 both groin sites with dressing in place, no hematoma or ecchymosis HEAD: Normocephalic. EYES: No scleral icterus. No injection or drainage. NECK: Supple, trachea midline. No JVD or lymphadenopathy. CARDIOVASCULAR: Regular rate and rhythm without murmurs, gallops, or rubs. RESPIRATORY: Breath sounds equal bilaterally. No accessory muscle use. GASTROINTESTINAL: Abdomen soft, non-tender, nondistended. MUSCULOSKELETAL: No cyanosis, or edema. BACK: Nontender without obvious deformity. No CVA tenderness. Labs: Laboratory Results - last 12 hr 10/13/17 10/14/17 10/14/17 09:00 04:00 04:00 WBC RBC Hgb Hct MCV MCH MCHC RDW Plt Count MPV Sodium 138 Potassium 4.3 Chloride 104 Carbon Dioxide 25.7 Anion Gap 8 BUN 22 H Creatinine 1.39 H Estimated GFR 49 L Random Glucose 194 H Calcium 8.4 L Magnesium 2.0 Blood Type O Positive Blood Type Recheck Not needed Antibody Screen Negative MTS Gel Crossmatch See Detail 10/14/17 04:20 WBC 12.6 H RBC 3.76 L Hgb 11.1 L Hct 32.1 L MCV 85.4 MCH 29.4 MCHC 34.5 RDW 13.4 Plt Count 188 MPV 7.9 Sodium Potassium Chloride Carbon Dioxide Anion Gap BUN Creatinine Estimated GFR Random Glucose Calcium Magnesium Blood Type Blood Type Recheck Antibody Screen MTS Gel Crossmatch Result Diagrams: 10/14/17 04:20 10/14/17 04:00 Telemetry: NSR/ with occasional V pacing and Bigeminy - Plan (1) S/P TAVR (transcatheter aortic valve replacement) Plan: on ASA, plavix Luc for EP study today further orders deferred to dental resident will see prn
[2017-10-14] MEDS ORDERED: Dextrose 50% in Water 50 ML Vial IV.PUSH PRN (10:16)
[2017-10-14] MEDS ORDERED: Acetaminophen 325 MG Tablet PO PRN (10:17)
[2017-10-14] MEDS: Lisinopril 20 MG Tablet PO SCH ×2 (10:54→21:56)
[2017-10-14] MEDS ORDERED: Isoproterenol 200mcg/50mL Bag 200 MCG/50 ML BAG IV.CONT ONE (11:28)
[2017-10-14] MEDS ORDERED: Metoprolol Inj 5 MG/5 ML Vial IV.PUSH ONE (12:00)
[2017-10-14] MEDS ORDERED: Phenylephrine/NS 1000 MCG/10ML Syringe IV.PUSH ONE (12:00)
[2017-10-14] MEDS ORDERED: Sodium Chlor 0.9% Inj 500 ML IV.SIG ONE (12:00)
--- NOTE | 2017-10-14 12:09 | CATHPROC ---
Patient Name: Haris Pagan Study #: [id number] Initial MD: Phyllis Jaramillo Date of : 1935 Study Date: 10/14/2017 Cardiac Catheterization Report 10/14/2017 1:31:48 PM Financial #: [id number] 1 of 7 Patient Name: Haris Pagan Study #: [id number] Initial MD: Phyllis Jaramillo Date of : 1935 Study Date: 10/14/2017 Entire Case Report Patient Information Patient Name Haris Pagan Date of 1935 Age 82 years Financial # [id number] Gender M AlternateID Lab Number 2 Room Number 444 Height (in) 66.0 Height (cm) 167.6 BSA 1.75 Weight (lbs) 145.4 Weight (kg) 66.1 Patient Address/Phone Number Home Address [facility] Home Phone Number [address] [facility] [phone] Study Information Study Number Admission Scheduled Start Study Start [id number] Oct 13 2017 8:22AM 10/14/2017 Oct 14 2017 11:31AM [place] Service Cardiac Pacer/ICD Admit Source Facility Department Other [facility] - Dental Claims Processor Physician and Clinical Staff Initial Phyllis Pompa Programmer Gladys Mars RCIS Programmer Charisse Galdamez RN Other Anesthesia, TERMITE CONTROL SERVICER Recorder Nicki Cortés RN Scrub Chinmay Oscar,RT(R) 10/14/2017 1:31:48 PM Financial #: [id number] 2 of 7 Patient Name: Haris Pagan Study #: [id number] Initial MD: Phyllis Jaramillo Date of : 1935 Study Date: 10/14/2017 Equipment Time Clay Roaster Description Size Mfg Part Number Used/Scraped [id number] 11:40 eEye BLANKET,WARM AIR CCL * Used *[id number] 11:40 eEye PACK, CCL CUSTOM * Used *[id number] 11:40 MEDLINE PACER RICK, LIMB * 2530 *[id number] Used [id number] 11:40 [employer] CATHETER, JSN, QUAD FR 5 Used *[id number] 451127 11:40 [employer] CATHETER, JSN, QUAD FR 5 Used *[id number] 132034 11:40 [employer] CATHETER, JSN, QUAD FR 5 Used *[id number] 120987 11:40 [employer] CATHETER, JSN, QUAD FR 5 Used *[id number] 651450 11:40 [employer] SHEATH, EPS, FR5 FAST CATH FR 5 Used *[id number] 523489 11:41 [employer] SHEATH, EPS, FR5 FAST CATH FR 5 Used *[id number] 897324 11:41 [employer] SHEATH, EPS, FR5 FAST CATH FR 5 Used *[id number] 264919 11:41 [employer] SHEATH, EPS, FR6 FAST CATH FR 6 Used *[id number] Insurance Information Insurance Payor Private Health Insurance Third Constitution Party Third Constitution Party Number [facility] FHCMCRHMO History: Allergies Allergy Reaction simvastatin swelling rosuvastatin SWELLING History: Risk Factors Hypertension Dyslipidemia Yes Yes Prior Valve Surgery Yes Peripheral Artery Diabetes Diabetes Therapy Disease Yes Yes Oral Labs 10/14/2017 1:31:48 PM Financial #: [id number] 3 of 7 Patient Name: Haris Pagan Study #: [id number] Initial MD: Phyllis Jaramillo Date of : 1935 Study Date: 10/14/2017 Hgb (g/dl) Hct (%) RBC (MIL/MM3) WBC (l/cumm) Platelets (thousands) 11.60-17.00 35.00-51.00 4.00-5.90 4.00-11.00 150.00-450.00 11.1 32.1 3.8 12.6 188 Glucose (mg/dl) BUN (mg/dl) Creatinine (mg/dl) BUN:Creatinine (1:x) 74.00-106.00 7.00-18.00 0.50-1.30 10.00-20.00 194 22 1.4 15.7 Na (meq/l) K (meq/l) 136.00-145.00 3.50-5.10 138 4.3 INR (PTT:PT) 0.90-1.10 1 Medication Medication Total Dose (Bolus/Oral) Medication Total Dosage/Unit 1% XYLOCAINE 20 mL Medications (Bolus/Oral) Medication Time Given Dosage/Unit Administered By Reason 1% XYLOCAINE 10/14/2017 11:58:30 AM 20 mL Phyllis Jaramillo 20 mL 1% XYLOCAINE given in lab by Phyllis Jaramillo in Right Groin via Subcutaneous. Ordered by Cathy Jaramillo. 10/14/2017 1:31:48 PM Financial #: [id number] 4 of 7 Patient Name: Haris Pagan Study #: [id number] Initial MD: Phyllis Jaramillo Date of : 1935 Study Date: 10/14/2017 Initial Case Assessment Cardiovascular HR NIBP 67 135/65 Edema Present Skin color Skin None Normal Warm Dry Circulatory - Right Pulses Dorsalis Pedis 1 Scale (0,1,2,3,4,d) Circulatory - Left Pulses Dorsalis Pedis 1 Scale (0,1,2,3,4,d) Circulatory - Lower Extremities Color Lower Right Color Lower Left Normal Normal Neurological State Oriented to time-place- Alert Moves all extremities person Respiration - General Respiration Rate SpO2 (%) O2 (lpm) (B/min) 16 94 2 Chronological Log Time Study Chronological Log 11:27:00 Patient arrived via Bed. 11:27:01 Patient Name, D.O.B, / Armband Verified By R.N. 11:27:02 Consent signed by the physician and the patient and verified by the Dental Claims Processor staff. 11:32:08 Pre-op and post- op instructions given; patient acknowledges understanding of instructions. 11:32:11 Verbal Stimulation=2 Physical Stimulation=2 Airway=2 Respiration=2 TOTAL=8. (0=absent, 1=li mited, 2=present) 11:32:12 Anesthesia at bedside. Assumes care of patient. Vishnu. 11:32:13 Patient has been NPO for More than 6Hrs. 11:32:14 Skin Breakdown- none per pt. Existing dressing ARIADNE cordero 11:32:15 Patient Warmer Placed on the Table. 10/14/2017 1:31:48 PM Financial #: [id number] 5 of 7 Patient Name: Haris Pagan Study #: [id number] Initial MD: Phyllis Jaramillo Date of : 1935 Study Date: 10/14/2017 11:32:15 Disposable Defibrillator Pads Placed On Patient. 11:32:16 Lauro Prominences Protected 11:32:18 A # 5 IV was noted in the Jugular Vein (right). Grade = 0 5Fr swan. 0.9% NaCl @ KVO 11:32:19 A # 20 IV was noted in the Antecubital (left). Grade = 0 0.9% NaCl @ KVO 11:32:20 History and physical on the chart. Assessment: Initial Case, HR=67 BPM, GJFA=575/65 mmhg, Edema=None, Color=Normal, Skin = Warm, D ry Right Pulses: Joseph Ped=1 Left Pulses: Joseph Ped=1 11:34:14 Lower Right Extremities: Color=Normal Lower Left Extremities: Color=Normal Neurological: State=Alert, Ox3, YOUNG Respiration: Resp=16 B/min, SpO2=94 %, O2=2 lpm 11:35:31 Anesthesiologist at bedside. 11:43:26 Table restraints applied according to hospital policy 11:52:11 MD paged 11:52:14 Reference ECG taken 11:55:06 MD arrived. Time Out. Correct patient, procedure, procedure equipment, site and side verified with physicia n present. Time 11:56:45 concurred by MD, individual staff and TERMITE CONTROL SERVICER. Time Out #2 - Consents verified, patient in correct position, all results are labled and displa yed, safety precautions 11:57:17 taken, antibiotics administered. Time out concurred by MD, individual staff and TERMITE CONTROL SERVICER in procedu re 11:57:19 Case Start 11:58:30 20 mL 1% XYLOCAINE given in lab by Phyllis Jaramillo in Right Groin via Subcutaneous. Ordered b y Phyllis Jaramillo. 11:59:20 Vascular access was obtained in the Fem Vein (right). 11:59:33 Wire in 11:59:43 Vascular access was obtained in the Fem Vein (right). 11:59:47 Wire in 11:59:54 Vascular access was obtained in the Fem Vein (right). 11:59:58 Wire in A SHEATH, EPS, FR5 FAST CATH FR 5 was advanced into the Fem Vein (right) using the Modified Janay dariusz technique. 12:00:04 Wire out. 12:00:10 Vascular access was obtained in the Fem Vein (right). A SHEATH, EPS, FR5 FAST CATH FR 5 was advanced into the Fem Vein (right) using the Modified Janay dariusz technique. 12:00:29 Wire out. A SHEATH, EPS, FR5 FAST CATH FR 5 was advanced into the Fem Art (right) using the Modified Seld avelino technique. 12:00:43 Wire out. 12:00:48 Wire in 12:01:07 RIJ temp pacer removed, introducer port remains in place with saline infusing @ KVO. A SHEATH, EPS, FR6 FAST CATH FR 6 was advanced into the Fem Vein (right) using the Modified Janay dariusz technique. 12:01:08 Wire out. A CATHETER, JSN, QUAD FR 5 was advanced vis Fem Vein (right) and placed in the HIS. Placement w as visually 12:03:46 confirmed under fluoroscopy. A CATHETER, JSN, QUAD FR 5 was advanced vis Fem Vein (right) and placed in the CS. Placement wa s visually 12:04:35 confirmed under fluoroscopy. 10/14/2017 1:31:48 PM Financial #: [id number] 6 of 7 Patient Name: Haris Pagan Study #: [id number] Initial MD: Phyllis Jaramillo Date of : 1935 Study Date: 10/14/2017 A CATHETER, JSN, QUAD FR 5 was advanced vis Fem Vein (right) and placed in the HRA. Placement was visually 12:05:41 confirmed under fluoroscopy. A CATHETER, JSN, QUAD FR 5 was advanced vis Fem Vein (right) and placed in the RVA. Placement was visually 12:06:48 confirmed under fluoroscopy. 12:07:48 Incremental Pacing in progress 12:11:35 All Catheters were removed except RV Quad via Rt fem vein. 12:12:22 Sheath(s) left in place, will be removed later. All lines connected to heparinized saline. 12:12:33 NOTE: This patient is undergoing an additional procedure while still in the Cardiac Cath L ab. 12:12:34 No case complications noted. 12:12:35 Cine recording checked. 12:12:36 EP Procedure was performed. 12:12:44 Beginning set up for PPM insertion. End Study - Contrast Media Used In Study Contrast Total Opened (mL) Total Used (mL) Total Wasted (mL) Unspecified 0 0 0 End Study - Maximum Contrast Load Max Contrast Load (mL) 236.0 End Study - Radiation Exposure Fluoro Time (minutes) 0.8 End Study - Patient Disposition Complications Transferred To No Telemetry Bed 10/14/2017 1:31:48 PM Financial #: [id number]
--- NOTE | 2017-10-14 13:10 | ECHRPT ---
Indication: CONCLUSIONS Aortic valve stenosis s/p TAVR. BP: / HR: Rhythm: Technical Quality: Medications Complications Proc. Components The patient was brought to the diagnostic imaging area in a fasting state after o btaining an informed consent. The patient was premedicated with IV Versed and IV Fentanyl. The teachers' assistant ior pharynx was sprayed with Cetacaine spray and the patient was administered viscous Xylocaine 2 %. The EMILY probe was passed into the posterior pharynx , mid-esophagus, distal esophagus, and gastric fundus. EMILY was performed at multiple levels. The patient tolerated the procedure well and there were no complications. The patient was transferred to the floor in satisfactory condition.. FINDINGS LEFT VENTRICLE Normal left ventricular size and wall thickness. The left ventricular systolic function is normal wi th an estimated ejection fraction in the range of 60-65%. Left ventricular diastolic function parameters a re normal. AORTIC VALVE Aortic valve stenosis s/p TAVR Freddy Fish MD, FACC (Electronically Signed) Final Date:14 October 2017 13:08
--- NOTE | 2017-10-14 13:30 | CATHPROC ---
Patient Name: Haris Pagan Study #: [id number] Initial MD: Phyllis Jaramillo Date of : 1935 Study Date: 10/14/2017 Cardiac Catheterization Report 10/14/2017 1:30:04 PM Financial #: [id number] 1 of 9 Patient Name: Haris Pagan Study #: [id number] Initial MD: Phyllis Jaramillo Date of : 1935 Study Date: 10/14/2017 Entire Case Report Patient Information Patient Name Haris Pagan Date of 1935 Age 82 years Financial # [id number] Gender M AlternateID Lab Number 2 Room Number 444 Height (in) 66.0 Height (cm) 167.6 BSA 1.75 Weight (lbs) 145.4 Weight (kg) 66.1 Patient Address/Phone Number Home Address [facility] Home Phone Number [address] [facility] [phone] Study Information Study Number Admission Scheduled Start Study Start [id number] Oct 13 2017 8:22AM 10/14/2017 Oct 14 2017 8:46AM [place] Service Cardiac Pacer/ICD Admit Source Facility Department Other [facility] - Career And Guidance Counselor Physician and Clinical Staff Initial Phyllis Pompa Visitor Services Information Assistant Chinmay Oscar,RT(R) Visitor Services Information Assistant Charisse Galdamez RN Other Anesthesia, BITUMEN PLANT OPERATOR Recorder Nicki Cortés RN Scrub Gladys Mars RCIS Procedures Performed Procedure Lead Insertion 10/14/2017 1:30:04 PM Financial #: [id number] 2 of 9 Patient Name: Haris Pagan Study #: [id number] Initial MD: Phyllis Jaramillo Date of : 1935 Study Date: 10/14/2017 Equipment Time Automated Weaver Description Size Mfg Part Number Used/Scraped DERMABOND, ADHESIVE SKIN [id number] 12:16 CORDIS/PACER * Used GLUE MINI *[id number] 12:16 [employer] I/O BLANKET,WARM AIR CCL * Used *[id number] TP-1103 12:16 [employer] I/O SUTURE, STRIP PLUS 1/2" * Used *[id number] 12:16 MEDLINE PACER RICK, LIMB * 2530 *[id number] Used [id number] 12:16 MEDLINE PACER PACK, PACER CUSTOM * Used *[id number] 12:24 [email or web address] PACER SAFE SHEATH, FR7, 13CM FR 7 CLS-1007 Used 12:24 [employer] MEDICAL PACER SAFE SHEATH, FR7, 13CM FR 7 CLS-1007 Used 12:38 Needle Sponge Count 2 22 Used 12:37 Needle Sponge Count 20 200 Used 12:37 Needle Sponge Count 4 4 Used SUTURE, 0 ETHIBOND [CT1] (CX21D), 8pk SUTURE, 2-0 VICRYL [CT1] (CEL073X) SUTURE, 2-0 VICRYL [CT1] (XSQ633P) SUTURE, 4-0 VICRYL [PS2] (MGA310O) LEAD, TENDRIL STS 2088TC 12:53 [facility] 52CM 2088TC/52CM Used 52CM LEAD, TENDRIL STS 2088TC 12:53 [facility] 58CM 2088TC/58CM Used 58CM PACEMAKER, ASSURITY DR AN 12:58 [facility] [id number] Used MRI [facility] PAD, ELECTROSURGICAL 12:16 * [id number] *[id number] Used SURGICAL GROUNDING ORANGE 7625-1586 12:16 [employer] KANDICE. / * Used *27416 Equipment Model, Serial, Lot Number and Expiration Data Description Model Number Serial Number Lot Number Expiration Date LEAD, TENDRIL STS 2088TC 52CM 2088TC-52 [id number] 08-12-2020 LEAD, TENDRIL STS 2088TC 58CM 2088TC-58 [id number] 08-28-2017 PACEMAKER, ASSCHLOÉ AN MRI [id number] 03-14-2019 Insurance Information Insurance Payor Private Health Insurance Third Republican Third Republican Number [facility] [employer] FHCMCRHMO 10/14/2017 1:30:04 PM Financial #: [id number] 3 of 9 Patient Name: Haris Pagan Study #: [id number] Initial MD: Phyllis Jaramillo Date of : 1935 Study Date: 10/14/2017 History: Current Medications Medication Dosage/Unit Route Frequency Last Date/Time Taken Statins (any) ASA PROCARDIA History: Allergies Allergy Reaction simvastatin swelling rosuvastatin SWELLING History: Risk Factors Family History of Hypertension Dyslipidemia Previous AR Previous Heart Failure Premature CAD Yes Yes No No No Prior Valve Prior PCI Prior CABG Surgery Yes No No Cerebrovascular Peripheral Artery Chronic Lung On Dialysis Diabetes Diabetes Therapy Disease Disease Disease No No Yes No Yes Oral History: Other Current Smoker Quit Packs a Day Years Used Pack Years No 30 Years Ago 3 35 105 Labs Hgb (g/dl) Hct (%) RBC (MIL/MM3) WBC (l/cumm) Platelets (thousands) 11.60-17.00 35.00-51.00 4.00-5.90 4.00-11.00 150.00-450.00 11.1 32.1 3.8 12.6 188 Glucose (mg/dl) BUN (mg/dl) Creatinine (mg/dl) BUN:Creatinine (1:x) 74.00-106.00 7.00-18.00 0.50-1.30 10.00-20.00 194 22 1.4 15.7 Na (meq/l) K (meq/l) 136.00-145.00 3.50-5.10 138 4.3 INR (PTT:PT) 0.90-1.10 1 Medication 10/14/2017 1:30:04 PM Financial #: [id number] 4 of 9 Patient Name: Haris Pagan Study #: [id number] Initial MD: Phyllis Jaramillo Date of : 1935 Study Date: 8 Medication Total Dose (Bolus/Oral) Medication Total Dosage/Unit 2% XYLOCAINE 40 mL Medications (Bolus/Oral) Medication Time Given Dosage/Unit Administered By Reason 2% XYLOCAINE 10/14/2017 12:44:21 PM 40 mL Phyllis Jaramillo 40 mL 2% XYLOCAINE given in lab by Phyllis Jaramillo in Left shoulder via Subcutaneous. Ordered by Phyllis Jaramilol. Medication (Drip) Medication Time Given Dosage/Unit Concentration/Unit Diluent (ml) Solution ANCEF 10/14/2017 12:48:10 PM 2 g 2 g ANCEF given in lab by Anesthesia, BITUMEN PLANT OPERATOR via Peripheral IV. Ordered by Phyllis Jaramillo. Reason: As pe r physicians verbal order. VANCOMYCIN DRIP 10/14/2017 12:37:08 PM 1 g 1 g VANCOMYCIN DRIP given in lab by Anesthesia, BITUMEN PLANT OPERATOR via Peripheral IV. Ordered by Phyllis Jaramillo. Polina son: As per physicians verbal order. Other Assessment Cardiovascular HR NIBP 60 98/50 Edema Present Skin color Skin None Normal Warm Dry Circulatory - Right Pulses Dorsalis Pedis 1 Scale (0,1,2,3,4,d) Circulatory - Left Pulses Dorsalis Pedis 1 Scale (0,1,2,3,4,d) Circulatory - Lower Extremities Color Lower Right Color Lower Left Normal Normal Neurological State Unresponsive Respiration - General Respiration Rate SpO2 (%) O2 (lpm) (B/min) 14 100 4 10/14/2017 1:30:04 PM Financial #: [id number] 5 of 9 Patient Name: Haris Pagan Study #: [id number] Initial MD: Phyllis Jaramillo Date of : 1935 Study Date: 10/14/2017 Final Case Assessment Cardiovascular HR NIBP 60 123/85 Edema Present Skin color Skin None Normal Warm Dry Circulatory - Right Pulses Dorsalis Pedis 1 Scale (0,1,2,3,4,d) Circulatory - Left Pulses Dorsalis Pedis 1 Scale (0,1,2,3,4,d) Circulatory - Lower Extremities Color Lower Right Color Lower Left Normal Normal Neurological State Drowsy Moves all extremities Respiration - General Respiration Rate SpO2 (%) O2 (lpm) (B/min) 14 96 4 Chronological Log Time Study Chronological Log 12:16:18 Initial procedure has been completed. Beginning additional procedure. 12:16:19 All monitors, IV's and table + safety straps remain in place. 12:16:28 2% CHLORHEXIDINE GLUCONATE WASH AND NASAL SWIPE DONE PRIOR TO PROCEDURE. 12:16:34 Anesthesia remains at bedside continuing to assume care of patient. Preparing to insert LMA . Vishnu 12:16:58 Bovie ground pad applied to: right thigh 12:17:43 Reference ECG taken 12:18:46 Left Upper Chest shaved. 12:19:13 Anesthesia Vish Ga. 10/14/2017 1:30:04 PM Financial #: [id number] 6 of 9 Patient Name: Haris Pagan Study #: [id number] Initial MD: Phyllis Jaramillo Date of : 1935 Study Date: 10/14/2017 12:23:51 Bilateral Upper Chest Prepped Times Two. First Sponge And Instrument Count Done by Chinmay Oscar, RT(R). 12:36:20 Hypo's: 4, Sponges: 20, Bovie/scratch: 2 Sutures: 11, Blades: 1, Instruments: 26, Syveck Patches: ~SYVECK PATCH~ verified by 1 g VANCOMYCIN DRIP given in lab by Anesthesia, BITUMEN PLANT OPERATOR via Peripheral IV. Ordered by Michael Jaramillo Reason: As per 12:37:08 physicians verbal order. 12:37:55 A sterile drape was applied after a 5 minute prep drying time. 12:39:00 LMA inserted by anesthesia. 12:44:01 Case Start 12:44:21 40 mL 2% XYLOCAINE given in lab by Phyllis Jaramillo in Left shoulder via Subcutaneous. Ordered by Phyllis Jaramillo. 12:45:26 Vascular access was obtained in the Subclav. Vein (Lft. 12:45:27 Wire inserted 12:45:29 Vascular access was obtained in the Subclav. Vein (Lft. 12:45:30 Wire inserted 12:45:32 Surgical Incision Made. 12:45:33 A pocket was created at the Lt. upper chest. 12:47:04 A SAFE SHEATH, FR7, 13CM FR 7 was advanced into the Subclav. Vein (Lft using the Modified S eldinger technique. 12:47:30 A SAFE SHEATH, FR7, 13CM FR 7 was advanced into the Subclav. Vein (Lft using the Modified S eldinger technique. 2 g ANCEF given in lab by Anesthesia, BITUMEN PLANT OPERATOR via Peripheral IV. Ordered by Phyllis Jaramillo. Reason: As per physicians 12:48:10 verbal order. 12:48:11 A LEAD, TENDRIL STS 2088TC 58CM 58CM was inserted and positioned in the RV. 12:48:21 Lead placement verified under fluoroscopy 12:49:07 The RV lead impedance and threshold being tested. 12:52:12 A LEAD, TENDRIL STS 2088TC 52CM 52CM was inserted and positioned in the RA. 12:52:19 Lead placement verified under fluoroscopy 12:53:45 The Atrial lead impedance and threshold is being tested. 12:54:36 Repositioning the RA lead. 12:55:17 New Lead placement verified under fluoroscopy 12:55:20 The Atrial lead impedance and threshold is being tested again. 12:58:29 Pocket flushed with antibiotic solution 12:58:42 The pocket is being closed. 12:59:21 A PACEMAKER, ERLINDA CHRISTIANSON was connected and placed in the pocket. 13:01:02 PACU called. Spoke to Linda 13:01:12 Case End (Physician broke scrub) Second Sponge And Instrument Count Done by Chinmay Oscar RT(R). 13:01:48 Hypo's: 4, Sponges: 20, Bovie/scratch: 2 Sutures: 11, Blades: 1, Instruments: 26, Syveck Patches: ~SYVECK PATCH~ verified by 13:02:28 Implant Procedure was performed. 13:02:36 A PPM Implant . (Dual) 13:02:53 Implantable Device card placed in patient's chart. 13:04:38 All right femoral sheaths removed; pressure applied to access site by 10/14/2017 1:30:04 PM Financial #: [id number] 7 of 9 Patient Name: Haris Pagan Study #: [id number] Initial MD: Phyllis Jaramillo Date of : 1935 Study Date: 10/14/2017 13:13:22 Wound sutured closed left chest. 13:14:24 LMA removed and pt placed to supplemental oxygen by [place]. 13:15:19 Sterile dressing applied to right femoral site. 13:15:40 Steri-strips and a sterile dressing applied to site. Final Sponge And Instrument Count Done by Chinmay Oscar RT(R). 13:15:59 Hypo's: 4, Sponges: 20, Bovie/scratch: 2 Sutures: 11, Blades: 1, Instruments: 26, Syveck Patches: ~SYVECK PATCH~ verified by 13:16:50 A sling was placed on the affected arm. 13:16:57 No case complications noted. 13:16:59 Cine recording checked. 13:17:04 CVICU notified of successful intervention. Spoke to Isamar. 13:20:09 Bedside Report will be given. Assessment: Other, HR=60 BPM, NIBP=98/50 mmhg, Edema=None, Color=Normal, Skin = Warm, Dry Right Pulses: Joseph Ped=1 Left Pulses: Joseph Ped=1 13:20:55 Lower Right Extremities: Color=Normal Lower Left Extremities: Color=Normal Neurological: State=Unresponsive Respiration: Resp=14 B/min, KfX0=379 %, O2=4 lpm Assessment: Final Case, HR=60 BPM, STSO=429/85 mmhg, Edema=None, Color=Normal, Skin = Warm, Dr y Right Pulses: Joseph Ped=1 Left Pulses: Joseph Ped=1 13:30:11 Lower Right Extremities: Color=Normal Lower Left Extremities: Color=Normal Neurological: State=Drowsy, YOUNG Respiration: Resp=14 B/min, SpO2=96 %, O2=4 lpm 13:30:25 Patient moved to stretcher 13:31:11 Defibrillator and ground pads removed. Skin intact. 13:33:00 Pt transported back to CVICU via bed with RN and tech accompanying on portable monitors an d O2. End Study - Contrast Media Used In Study Contrast Total Opened (mL) Total Used (mL) Total Wasted (mL) Unspecified 0 0 0 End Study - Maximum Contrast Load Max Contrast Load (mL) 236.0 End Study - Radiation Exposure Fluoro Time (minutes) 2.4 10/14/2017 1:30:04 PM Financial #: [id number] Patient Name: Haris Pagan Study #: [id number] Initial MD: Phyllis Jaramillo Date of : 1935 Study Date: 10/14/2017 End Study - Patient Disposition Complications Transferred To No Telemetry Bed 10/14/2017 1:30:04 PM Financial #: [id number]
[2017-10-14] MEDS ORDERED: ceFAZolin 2 GM Premix Inj 2 GM/50 ML PIGGYBACK IV.SIG SCH (14:00)
[2017-10-14] MEDS: Morphine Inj 4 MG/ML Vial IV.PUSH PRN ×3 (14:09→22:08)
--- NOTE | 2017-10-14 14:32 | ECHRPT ---
Indication: POST TAVR CONCLUSIONS Normal left ventricular size. Wall thickness is normal. No regional wall motion abnormalities are present. The aortic valve is not well visualized. transcatheter aortic valve replacement No aortic valve stenosis. Aortic valve area is 1.3 cm. Aortic valve mean gradient is 8 mmHg. The pulmonary valve is not well visualized. BP: / HR: Rhythm: Sinus MEASUREMENTS (Male / Female) Normal Values Technical Quality:Good 2D ECHO LVOT Diameter 1.7 cm LV Ejection Fraction MOD 4C 69.3 % LV Ejection Fraction 4C AL 70.3 % M-MODE Aortic Root Diameter MM 2.1 cm AV Cusp Separation MM 1.8 cm DOPPLER AV Peak Velocity 193.0 cm/s AV Peak Gradient 14.9 mmHg AV Mean Gradient 8.0 mmHg AV Velocity Time Integral 45.4 cm LVOT Peak Velocity 95.9 cm/s LVOT Peak Gradient 3.7 mmHg LVOT Velocity Time Integral 25.1 cm AV Area Cont Eq vti 1.3 cm AV Area Cont Eq pk 1.1 cm FINDINGS LEFT VENTRICLE The left ventricular systolic function is normal with an estimated ejection fraction in the range of 60-65%. Normal left ventricular size. Wall thickness is normal. No regional wall motion abnormalities are present. RIGHT VENTRICLE Normal right ventricular size and systolic function. LEFT ATRIUM The left atrial size is normal. RIGHT ATRIUM The right atrial size is normal. ATRIAL SEPTUM Normal atrial septal thickness without atrial level shunting by limited color doppler interrogation. AORTA The aortic root and proximal ascending aorta are normal in size on limited imaging. MITRAL VALVE Structurally normal mitral valve. No mitral valve stenosis or regurgitation. AORTIC VALVE The aortic valve is not well visualized. No aortic valve stenosis. Aortic valve area is 1.3 cm. Aortic valve mean gradient is 8 mmHg. TRICUSPID VALVE Structurally normal tricuspid valve. No tricuspid valve stenosis or regurgitation. PULMONARY VALVE The pulmonary valve is not well visualized. VESSELS The inferior vena cava is normal in size. PERICARDIUM No pericardial effusion. Freddy Fish MD, FACC (Electronically Signed) Final Date:14 October 2017 14:30
--- NOTE | 2017-10-14 14:53 | XR ---
EXAM DATE: 10/14/2017 2:36 PM EDT AGE/SEX: 82 years / Male INDICATIONS: Status post pacer. CLINICAL DATA: This is the patient's initial encounter. Patient reports that signs and symptoms have been present for 1 day and indicates a pain score of 3/10. MEDICAL/SURGICAL HISTORY: Hypertension. Aortic valve stenosis. None. COMPARISON: [facility], CHEST 1V SINGLE AP, 10/13/2017. . FINDINGS: A single AP view of the chest demonstrates the lungs to be symmetrically aerated without evidence of mass, infiltrate or effusion. The cardiomediastinal contours are unremarkable. Osseous structures a re intact. There is a pacemaker overlying the left chest. There is no pneumothorax. CONCLUSION: Status post placement of a left-sided pacemaker. No pneumothorax. Electronically signed by: Rocael Kumar MD 10/14/2017 2:51 PM EDT
--- NOTE | 2017-10-14 15:43 | ECG ---
Date Performed: 10/13/2017 Time Performed: 13:05:34 PTAGE: 82 years EKG: Sinus rhythm Left bundle branch block Whe compared to previous tracing, left bundle branch block is New. Can not rule out ischemia. Clinical correlation is recommended Abnormal ECG PREVIOUS TRACING : 10/13/2017 08.2.24 DOCTOR: Haris Waterman Interpretating Date/Time 10/14/2017 15:42:07
--- NOTE | 2017-10-14 15:45 | ECG ---
Date Performed: 10/14/2017 Time Performed: 05:55:58 PTAGE: 82 years EKG: Sinus rhythm with 1st degree A-V block Inferior/lateral T wave changes are nonspecific Resolved, but with persist ing nonspecific ST-T wave changes. Clinical correlation is recommended Abnormal ECG PREVIOUS TRACING : 10/13/2017 13.05 DOCTOR: Haris Waterman Interpretating Date/Time 10/14/2017 15:43:35
[2017-10-14] MEDS: Insulin NovoLOG Aspart Correctional Sugar Inj SQ SCH ×3 (17:11→21:57)
[2017-10-14] MEDS: ceFAZolin Inj 2,000 MG in Sodium Chlor 0.9% Inj 80 ML IV.SIG SCH (21:57)
[2017-10-14] MEDS: Senna/Docusate Sodium 8.6/50 MG Tablet PO SCH (21:57)
[2017-10-15 03:22] VITALS: O2SAT 97
[2017-10-15] MEDS: Sod Chloride 0.9% Inj 1,000 ML IV.CONT SCH ×3 (03:29→21:17)
[2017-10-15] MEDS: ceFAZolin Inj 2,000 MG in Sodium Chlor 0.9% Inj 80 ML IV.SIG SCH ×2 (04:18→12:00)
[2017-10-15 05:17] LABS: Baso # (Auto) 0.1 th/mm3 (0.0-0.2); Baso % (Auto) 0.5 % (0.0-2.0); Eos # (Auto) 0.2 th/mm3 (0.0-0.4); Eos % (Auto) 2.4 % (0.0-4.0); Hematocrit 26.8 % (39.0-51.0); Lymph # (Auto) 1.7 th/mm3 (1.0-4.8); Lymph % (Auto) 17.2 % (9.0-44.0); Mean Corpuscular HGB Conc 33.7 % (32.0-36.0); Mean Corpuscular Hemoglobin 29.3 pg (27.0-34.0); Mean Corpuscular Volume 86.9 fL (80.0-100.0); Mean Platelet Volume 7.9 fL (7.0-11.0); Mono # (Auto) 0.8 th/mm3 (0.0-0.9); Mono % (Auto) 8.6 % (0.0-8.0); Neut # (Auto) 6.9 th/mm3 (1.8-7.7); Neut % (Auto) 71.3 % (16.0-70.0); Platelet Count 128 th/mm3 (150-450); Red Blood Count 3.08 mil/mm3 (4.50-5.90); Red Cell Distribution Width 13.5 % (11.6-17.2); White Blood Count 9.7 th/mm3 (4.0-11.0)
[2017-10-15 05:40] LABS: Calcium 7.8 mg/dL (8.5-10.1); Carbon Dioxide 27.6 meq/L (21.0-32.0); Magnesium 1.8 mg/dL (1.5-2.5); Potassium 4.2 meq/L (3.5-5.1)
[2017-10-15] MEDS: Senna/Docusate Sodium 8.6/50 MG Tablet PO SCH ×2 (08:01→21:50)
[2017-10-15] MEDS: Lisinopril 20 MG Tablet PO SCH ×2 (08:03→21:50)
[2017-10-15] MEDS ORDERED: Morphine Inj 4 MG/ML Vial IV.PUSH PRN (08:54)
--- NOTE | 2017-10-15 08:54 | ECG ---
Date Performed: 10/14/2017 Time Performed: 14:18:14 PTAGE: 82 years EKG: Possible Sinus rhythm Extensive ST-T changes may be due to myocardial ischemia Abnormal ECG PREVIOUS TRACING : 10/14/2017 05.55 No significant change from previous tracing noted. DOCTOR: Kip Dee Interpretating Date/Time 10/15/2017 08:52:17
--- NOTE | 2017-10-15 09:00 | P.PNCA ---
<Malik Hughes - Last Filed: 10/15/17 08:57> Subjective Interval history: Patient reports no issues after TAVR and prior to pacemaker placement. The patient reports he has been feeling poorly since pacemaker placed yesterday. He states he had 10 out of 10 pain after pacemaker placed yesterday, currently 8 /10. Morphine and Percocet helping. He is having a hard time getting motivated to get out of bed using only his right arm. Physical Exam Vital signs: Vital Signs 10/14/17 11:00 10/14/17 15:00 10/14/17 19:00 Temperature 98.7 F Pulse Rate 59 L 59 L 60 Respiratory Rate 22 Blood Pressure 130/67 Pulse Oximetry 93 L 10/14/17 20:00 10/14/17 22:30 10/14/17 23:00 Temperature 97.8 F Pulse Rate 67 Respiratory Rate 16 16 Blood Pressure 154/72 H Pulse Oximetry 93 L 97 10/15/17 00:00 10/15/17 01:50 10/15/17 03:00 Temperature 97.8 F Pulse Rate 69 66 Respiratory Rate 16 16 Blood Pressure 156/69 H Pulse Oximetry 97 10/15/17 07:00 Temperature 98.8 F Pulse Rate 82 Respiratory Rate 14 Blood Pressure 186/78 H Pulse Oximetry Intake & Output 10/14/17 10/15/17 10/15/17 18:59 06:59 18:59 Intake Total 480 / 480 440 / 440 Output Total 500 / 500 600 / 600 Balance -20 / -20 -160 / -160 Weight 149 lb 14.629 oz Intake: IV 200 / 200 Ancef Inj 2,000 MG In NS Inj 80 200 / 200 ML @ 200 mls/hr IV.SIG Q8H JULIETTE Rx#:[id number] Oral 480 / 480 240 / 240 Output: Urine 500 / 500 600 / 600 Other: Date of Last Bowel Movement 10/14/17 10/14/17 # Bowel Movements 0 Narrative: GENERAL: Well-developed well-nourished. In no acute distress. NECK: No carotid bruits. No JVD. CARDIOVASCULAR: Regular rate and rhythm. No murmur appreciated. Left chest wall with pacemaker in place with moderate swelling and minimal ecchymosis. RESPIRATORY: No accessory muscle use. Clear to auscultation. Breath sounds equal bilaterally. MUSCULOSKELETAL: No clubbing or cyanosis. No edema. NEUROLOGICAL: Awake and alert. Normal speech. - Urinary Catheter Management Indwelling Temp Sensing Catheter Cath placed during this visit: yes Reason for continuing: Hourly intake/output Insertion date: 10/13/17 Insertion time: 11:10 Assessment and Plan - Plan 82-year-old male with history of severe aortic stenosis now status post TAVR 10/13 Doing well post TAVR Limited echo shows good valve function EP study with PPM 10/14 Percocet for pain control for now Out of bed with PT HHC vs SNF Aspirin, Plavix BP uncontrolled, possibly due to pain Increase nifedipine Discussed Condition With: Patient, Dr. Fish <Freddy Fish - Last Filed: 10/15/17 12:10> Physical Exam Vital signs: Vital Signs 10/14/17 15:00 10/14/17 19:00 10/14/17 20:00 Temperature 98.7 F Pulse Rate 59 L 60 Respiratory Rate 22 Blood Pressure 130/67 Pulse Oximetry 93 L 93 L 10/14/17 22:30 10/14/17 23:00 10/15/17 00:00 Temperature 97.8 F Pulse Rate 67 69 Respiratory Rate 16 16 Blood Pressure 154/72 H Pulse Oximetry 97 10/15/17 01:50 10/15/17 03:00 10/15/17 07:00 Temperature 97.8 F 98.8 F Pulse Rate 66 82 Respiratory Rate 16 16 14 Blood Pressure 156/69 H 186/78 H Pulse Oximetry 97 10/15/17 10:31 Temperature Pulse Rate Respiratory Rate Blood Pressure Pulse Oximetry 95 Intake & Output 10/14/17 10/15/17 10/15/17 18:59 06:59 18:59 Intake Total 480 / 480 440 / 440 Output Total 500 / 500 600 / 600 Balance -20 / -20 -160 / -160 Weight 68 kg Intake: IV 200 / 200 Ancef Inj 2,000 MG In NS Inj 80 200 / 200 ML @ 200 mls/hr IV.SIG Q8H JULIETTE Rx#:[id number] Oral 480 / 480 240 / 240 Output: Urine 500 / 500 600 / 600 Other: Date of Last Bowel Movement 10/14/17 10/14/17 10/14/17 # Bowel Movements 0 - Urinary Catheter Management Indwelling Temp Sensing Catheter Cath placed during this visit: no Assessment and Plan - Attending Attestation lot of should pain lives alone may be better for SNF pain uncontrolled. requiring Morphine will need another day here plan for DC tomorrow to SNF PT eval and treat continue medical therapy.
[2017-10-15] MEDS: Morphine Inj 4 MG/ML Vial IV.PUSH PRN (10:02)
[2017-10-15] MEDS: ceFAZolin 2 GM Premix Inj 2 GM/50 ML PIGGYBACK IV.SIG SCH (12:41)
[2017-10-15] MEDS: Insulin NovoLOG Aspart Correctional Sugar Inj SQ SCH ×2 (12:56→17:52)
[2017-10-16] MEDS: Morphine Inj 4 MG/ML Vial IV.PUSH PRN (06:13)
[2017-10-16] MEDS: Insulin NovoLOG Aspart Correctional Sugar Inj SQ SCH ×4 (07:37→11:50)
[2017-10-16] MEDS: Sod Chloride 0.9% Inj 1,000 ML IV.CONT SCH ×2 (07:37→09:04)
[2017-10-16] MEDS: Lisinopril 20 MG Tablet PO SCH (08:59)
[2017-10-16] MEDS: Senna/Docusate Sodium 8.6/50 MG Tablet PO SCH (08:59)
--- NOTE | 2017-10-16 10:58 | P.DS ---
Date of admission: 10/13/17 08:22 Primary care physician: UNKNOWN Attending physician on discharge: Freddy Fish Anticipated date of discharge: 10/16/17 Brief History from admission: 82y/o male with severe symptomatic . He was evaluated and scheduled for TAVR. DS: Diagnosis - Discharge Diagnosis (1) Aortic stenosis Status: Acute Diagnosis: Principal (2) Diastolic heart failure Status: Acute Diagnosis: Principal (3) S/P TAVR (transcatheter aortic valve replacement) Status: Acute (4) HTN (hypertension) Status: Chronic Diagnosis: Secondary (5) Diabetes mellitus Status: Chronic Diagnosis: Secondary DS: Medications - Discharge Medications Prescriptions: oxycodone-acetaminophen 1 tab PO Q6H PRN 7 Days tab PRN Reason: Pain Scale 3 To 5 DS: Summary Hospital Course: Patient underwent TAVR with a 26 Jean Pierre 3 tissue valve. He underwent an EP study the following day and required PPM placement due to concerns of heart block. He has done well subsequently and is ready for transfer to SNF. - Time Spent with Patient Total time spent providing and/or coordinating discharge services: Greater than 30 minutes - Quality: AMI Clinical Trial Participant: No - Quality: Stroke Symptom Onset Unknown: No Exam Vital signs: Vital Signs 10/15/17 11:00 10/15/17 15:00 10/15/17 19:00 Temperature 98.7 F 98 F 97.4 F L Pulse Rate 82 72 77 Respiratory Rate 16 14 16 Blood Pressure 175/79 H 116/75 158/70 H Pulse Oximetry 99 98 10/15/17 20:00 10/15/17 21:00 10/15/17 21:15 Temperature Pulse Rate 77 71 Respiratory Rate 16 Blood Pressure Pulse Oximetry 10/15/17 22:00 10/15/17 23:00 10/16/17 00:00 Temperature 97.4 F L Pulse Rate 77 74 75 Respiratory Rate 16 16 Blood Pressure 156/68 H Pulse Oximetry 97 10/16/17 04:00 10/16/17 06:12 10/16/17 07:00 Temperature 98.3 F Pulse Rate 96 H Respiratory Rate 16 16 16 Blood Pressure 155/68 H Pulse Oximetry 93 L 10/16/17 08:00 10/16/17 09:00 10/16/17 10:00 Temperature Pulse Rate 65 69 65 Respiratory Rate Blood Pressure Pulse Oximetry 93 L Intake & Output 10/15/17 10/16/17 10/16/17 18:59 06:59 18:59 Intake Total 480 / 480 240 / 240 Output Total 640 / 640 625 / 625 Balance -160 / -160 -385 / -385 Weight 67.5 kg Intake: Oral 480 / 480 240 / 240 Output: Urine 640 / 640 625 / 625 Other: Date of Last Bowel Movement 10/14/17 - Constitutional no acute distress - Routine HEENT Exam Head: Present: normocephalic, atraumatic Eye: Present: EOMI, PERRL ENT: Present: mucous membranes moist - Routine Neck Exam Present: supple - Routine Chest/Breast/Axilla Exam Chest wall: Present: pacemaker - Routine Respiratory Exam Present: CTA bilaterally - Routine Cardiovascular Exam Present: RRR - Routine Abdominal Exam Present: soft, normoactive bowel sounds - Routine Extremities Exam Present: pulses intact - Routine Skin Exam Present: intact - Routine Neurological Exam Present: alert, oriented X3, CN II-XII intact Results Procedures completed during hospitalization: TAVR 10/13/17 26 S3 tissue valve Pacemaker implant 10/14/17 Labs on day of discharge: Labs from last 24 hours 10/16/17 10/15/17 10/15/17 08:04 21:48 17:15 POC Glucose 167 H 132 H 170 H MTS Gel Crossmatch 10/15/17 10/13/17 12:32 09:00 POC Glucose 166 H MTS Gel Crossmatch See Detail - Impressions ITS Impressions Chest X-Ray 10/14/17 00:00 CONCLUSION: Status post placement of a left-sided pacemaker. No pneumothorax. Discharge Plan - Discharge Disposition Patient Disposition: Discharge to SNF - Discharge Condition Condition: Good - Discharge Order Discharge Orders: Discharge Order (Routine); Ordered 10/16/17 Ordered By: Genesis Santo - Discharge Details Anticipated Discharge Date: 10/16/17 - Physicians Team Primary Care Provider: UNKNOWN, Attending Provider: Freddy Fish Other Providers: Fabiola Kim MD ; Phyllis Jaramillo MD - Rxs /Orders / Referrals /Forms Prescriptions: New aspirin 81 mg Tablet,Chewable 81 mg PO DAILY RF: 0 clonidine HCl [Catapres] 0.2 mg Tablet 0.2 mg PO Q6H PRN (Reason: SBP > 160 mmHg) RF: 0 clopidogrel [Plavix] 75 mg Tablet 75 mg PO DAILY RF: 0 oxycodone-acetaminophen 5-325 mg Tablet 1 tab PO Q6H PRN (Reason: Pain Scale 3 To 5) 7 Days RF: 0 sennosides-docusate sodium [Senna Plus] 8.6-50 mg Tablet 1 tab PO BID RF: 0 Continue atorvastatin 40 mg Tablet 40 mg PO DAILY benazepril 20 mg Tablet 20 mg PO BID gabapentin 300 mg Capsule 300 mg PO TID glimepiride 1 mg Tablet 1 mg PO BID nifedipine 30 mg Tablet Extended Release 24hr 30 mg PO DAILY Discontinued aspirin [Aspirin Low Dose] 81 mg Tablet,Delayed Release (Dr/Ec) 81 mg PO DAILY Referrals: Freddy Fish MD [Physician] - See Instructions UNKNOWN, [Primary Care Provider] - See Instructions Lissa Buck MD [Family Provider] - See Instructions - Discharge Instructions Patient Printed Instructions: Clopidogrel (By mouth), Transcatheter Aortic Valve Replacement (DC) Additional Instructions: 10/28/17 1:15PM AMBIKA RAUSCH PACEMAKER SITE CHECK [facility] [address] [facility] [phone] [facility] OFFICE WILL CALL WITH 30-DAY AND ONE YEAR ECHOCARDIOGRAM APPTS 30-DAY TAVR FOLLOW UP 11/16/[address] [facility] [address] [facility] [phone] 1-YEAR TAVR FOLLOW UP 10/17/[address] [facility] [address] [facility] [phone]
[2017-10-19 18:22] VITALS: BP 109/59; RESP 16; TEMP 98.2
[2017-10-19 18:23] VITALS: PULSE 68
--- NOTE | 2017-10-31 16:37 | P.PCNCA ---
Dual PPM Implantation - Dual PPM Implantation Procedure Date: 10/14/17 Dual PPM Implantation: PROCEDURE: Dual chamber permanent pacemaker implantation. INDICATIONS FOR PROCEDURE: Haris Pagan is a 82-year-old M with infra his disease, SP TAVR, high risk for complete AV block who is scheduled for [pacer insertion. The risks, the nature, and the benefit of the procedure were clearly stated to the patient. The risks include pneumothorax, cardiac perforation, stroke and even . The patient understood and agreed to proceed. PROCEDURE As written informed consent was obtained prior to the EP study, the patient was kept on the EP lab transferred to the EP lab where he was prepped and draped in the usual sterile fashion. Conscious sedation was initiated and maintained throughout the procedure by the anesthesiologist. Once sedation was verified, the left infraclavicular area was with 2% Xylocaine. Using modified Seldinger technique, the left subclavian vein was cannulated on two occasions and two guidewires were advanced. Then, using a #11 blade scalpel, a 2 cm was made two fingerbreadths below the left clavicle. This incision was then taken down through the deep fascial layer using Bovie cautery and blunt dissection. Into the inferomedial direction, device pocket was dissected, then the wire was dissected into the pocket. A 2-0 Vicryl suture was placed around the wire to prevent backbleeding. At this point, over the lateral wire, an 7-Greenlandic dilator and introducer was advanced. As the dilator and wire were removed, an active fixation right ventricular pacing and sensing lead was advanced. After adequate pacing and sensing thresholds were obtained, the lead was secured in the pocket using 2-0 Ethibond suture. Then, over the remaining wire, an 7-Greenlandic dilator and introducer was advanced. As the dilator and wire were removed, an active fixation right atrial pacing and sensing lead was advanced. After adequate pacing and sensing thresholds were obtained, the lead was secured into the pocket using 2-0 Ethibond suture. At that point, the pocket was copiously irrigated using antibiotic solution. This was connected to the generator and placed into the pocket. I did proceed with wound closure. The deep fascial layer was approximated using 2-0 Vicryl suture in a continuous fashion. The subcutaneous layer was approximated with 2-0 Vicryl suture in a continuous fashion. The subcuticular layer was approximated with 2-0 Vicryl suture in a continuous fashion. Dermabond adhesive was applied to the wound followed by sterile pressure dressing. There was no complication. The patient tolerated procedure. Blood loss minimal. IMPLANTED HARDWARE The permanent pacemaker is a [employer]. Model # ZQ0727, serial number [id number]. The right atrial pacing and sensing lead is a [employer] model number 2088TC-52, serial number [id number]. The right ventricular pacing and sensing lead is a [employer] model number 2088TC- 58, serial number [id number]. THRESHOLDS The right atrial pacing threshold in the bipolar mode was .75V @ .4 milliseconds , lead impedance 400 ohms and P-wave at 2.5 millivolts. The right ventricular pacing threshold in the bipolar mode was [] milliseconds, lead impedance [] ohms and R-wave at the [] millivolts. SETTINGS The device was set in the DDD 60, upper limit 110 beats per minute. Hysteresis and mode switch are on. CONCLUSIONS: Successful permanent pacemaker implantation. COMMENT AND RECOMMENDATION The patient will be transferred to the telemetry unit and will be observed. When stable, the patient can be discharged home.
--- NOTE | 2017-11-01 09:43 | MA ---
cc: Phyllis Jaramillo MD DATE: 10/14/2017 INDICATIONS: Mr. Pagan is an 82-year-old gentleman, normal ejection fraction, status post aortic valve replacement, who developed a left bundle branch block post-procedure. is suspected. Electrophysiology study decided. The risks, the nature, and the benefits of the procedure were clearly stated to him. Risks include pneumothorax, cardiac perforation, stroke, inguinal hematoma or even . The patient understood and agreed to proceed. PROCEDURE: After written informed consent was obtained, the patient was brought to the EP lab where he was prepped and draped in the usual sterile fashion. Conscious sedation was initiated and maintained throughout the procedure by the anesthesiologist. Once sedation was verified, the right inguinal area was anesthetized with 2% Xylocaine. Using modified Seldinger technique, the right femoral vein was cannulated on 4 occasions. Four guidewires were advanced. Then, over the wire, three 5 and a 6-Spanish Hemaquet were advanced. Then, under fluoroscopic guidance through the 5 and 6-Spanish Hemaquet, four 5-Spanish Alexx curved quadripolar electrophysiology catheters were advanced and placed on the His, right atrium, coronary sinus and right ventricle apex. Ventricular ____ was measured. was prolonged over 90 millisecond. Then, atrial pacing protocol was performed. No tachyarrhythmia was induced. Then, ventricular pacing protocol was performed. No tachyarrhythmia was induced. At that point, procedure complete. The patient has a new left bundle branch block, severe disease. The patient is status post TAVR. The patient is going to need a dual chamber permanent pacemaker. No incident reported. The patient tolerated the procedure. Blood loss minimal. 1. ELECTROCARDIOGRAM: At baseline, the patient was in sinus. Postprocedure electrocardiogram was unchanged. 2. BASIC INTERVAL: Base cycle length was around 900 milliseconds, AH was at 110 and 90 and 94 milliseconds. 3. ATRIAL PACING PROTOCOL: Wenckebach was high at 520 milliseconds. 4. VENTRICULAR PACING PROTOCOL: There was no VA conduction. No tachyarrhythmia was induced. CONCLUSION: 1. disease. 2. Negative electrophysiology study for supraventricular tachyarrhythmia. RECOMMENDATIONS: The patient is going to be kept on the table where a dual chamber permanent pacemaker will be implanted. MD SG Elizondo/[email or web address]/kal , 04:29 PM , 04:46 PM
== END 2017-10-16 13:45 ==
LOC: HSDI 08:22 → HDIC 10:03 → HCVI 12:53 → HCPC 10-14 22:37
PROVIDERS: ADMIT Internal Medicine; ATTEND Internal Medicine
PROC: TAVRHYB (ICD-10-PCS; 2017-10-13 10:43)